=== PATIENT | male | born 1940 | race Caucasian/White ===

== ENCOUNTER 2016-11-02 19:45 | Inpatient (IN) | payer MEDICARE ==
[~2016-11-02] VITALS: Ht 182.9 cm; Wt 63.5 kg
[~2016-11-02 19:45] MED LIST: AMIO200T2 PEG; AMOX1TAB10 PO; AMPH50VI IV; ASCO500C PEG; CEFT2FRO2 IV; FERR-26 PO; METO25TA4 PO; METR500T IV; OLAN5TAB7 PO; ONDA4SOL2 PO; PANT40TA3 PEG; SERT25TA4 PEG
[2016-11-02] MEDS ORDERED: IV NORMAL SALINE 1000ML BAG 1,000 ML IV ONE ×2 (20:00→21:30)
[2016-11-02 20:43] LABS: BASO # 0.1 x10^3/uL (0.0-0.2); BASO % 0 % (0-3); EOS % 0 % (0-3); HEMOGLOBIN 8.6 g/dL (13.0-17.5); LYMPH # 4.6 x10^3/uL (1.0-4.8); LYMPH % 32 % (24-48); MEAN CORPUSCULAR HEMOGLOBIN 28 pg (25-35); MEAN CORPUSCULAR HGB CONC 32 g/dL (31-37); MEAN CORPUSCULAR VOLUME 88 fL (79-100); MONO % 10 % (0-9); NEUT % 57 % (31-73); PLATELET COUNT 292 x10^3/uL (140-400); RED BLOOD COUNT 3.05 x10^6/uL (4.30-5.70); WHITE BLOOD COUNT 14.2 x10^3/uL (4.0-11.0)
[2016-11-02 20:52] LABS: INR 1.8 (0.8-1.1); PROTHROMBIN TIME PATIENT 19.9 SEC (11.7-14.0)
[2016-11-02 20:54] LABS: CALCIUM 7.6 mg/dL (8.5-10.1); CREATININE 0.9 mg/dL (0.7-1.3); GFR 82.3
--- NOTE | 2016-11-02 21:03 | PHYS DOC ---
Past Medical History Past Medical History: A-Fib, Bipolar, Depression, GERD, Hypertension, Schizophrenia Past Surgical History: Other Additional Past Surgical Histo: cutaneous abscess of the abd wall, g-tube Alcohol Use: None Drug Use: None Adult General Chief Complaint Chief Complaint: HYPOTENSION HPI HPI 75-year-old male who states he had an issue with his wheelchair today in which he states his brake was not on and while he tried to sit down in the wheelchair and slipped out from underneath him and he impacted his right shoulder, right elbow and right hip. This was earlier this morning. He states that the days become weaker. Blood pressure was checked at his [facility] and was found to be low so he was sent here for further evaluation. He denies hitting his head or having any loss of consciousness. Patient states he does not take blood thinners. He denies any chest pain or shortness breath. Upon my initial evaluation, the patient is in no acute distress complaining of primarily right hip pain. He denies any headache. He is fully alert and oriented and able to answer my questions rate patient is in a LTAC for tube feeds as he had a significant abdominal abscess that required drainage and subsequent placement of tube feeds after the procedure. 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 Review of Systems Review of Systems Constitutional: Denies fever or chills [] Eyes: Denies change in visual acuity, redness, or eye pain [] HENT: Denies nasal congestion or sore throat [] Respiratory: Denies cough or shortness of breath [] Cardiovascular: No additional information not addressed in HPI [] GI: Denies abdominal pain, nausea, vomiting, bloody stools or diarrhea [] : Denies dysuria or hematuria [] Musculoskeletal: Denies back pain or joint pain [] Integument: Denies rash or skin lesions [] Neurologic: Denies headache, focal weakness or sensory changes [] Endocrine: Denies polyuria or polydipsia [] Current Medications Current Medications Current Medications Medications (Trade) Dose Ordered Sig/Harvey Start Time Stop Time Status Last Admin Dose Admin Ondansetron HCl 4 mg 4 mg PRN Q8HRS PRN 11/02/16 21:30 11/03/16 21:29 Sodium Chloride (Iv Sodium Chloride 0.9% 1000ml Bag) 1,000 ml @ 1,000 mls/hr 1X ONCE 11/02/16 21:30 11/02/16 22:29 Allergies Allergies Allergies Coded Allergies Type Severity Reaction Last Updated Verified Sulfa (Sulfonamide Antibiotics) Allergy Intermediate 09/22/16 Yes Physical Exam Physical Exam Constitutional: Well developed, well nourished, no acute distress, non-toxic appearance. [] HENT: Normocephalic, atraumatic, bilateral external ears normal, oropharynx moist, no oral exudates, nose normal. [] Eyes: PERRLA, EOMI, conjunctiva normal, no discharge. [] Neck: Normal range of motion, no tenderness, supple, no stridor. [] Cardiovascular:Heart rate regular rhythm, no murmur [] Lungs & Thorax: Bilateral breath sounds clear to auscultation [] Abdomen: Bowel sounds normal, soft, no tenderness, no masses, no pulsatile masses. [] Skin: Warm, dry, no erythema, no rash. [] Back: No tenderness, no CVA tenderness. [] Extremities: No tenderness, no cyanosis, no clubbing, ROM intact, no edema. [] Neurologic: Alert and oriented X 3, normal motor function, normal sensory function, no focal deficits noted. [] Psychologic: Affect normal, judgement normal, mood normal. [] Current Patient Data Vital Signs Vital Signs Date Time Temp Pulse Resp B/P Pulse Ox O2 Delivery O2 Flow Rate FiO2 11/02/16 21:00 74 103/52 95 Room Air 11/02/16 19:51 98.4 16 98.4 Lab Values Laboratory Tests Test 11/02/16 20:35 White Blood Count 14.2x10^3/uL (4.0-11.0) H Red Blood Count 3.05x10^6/uL (4.30-5.70) L Hemoglobin 8.6g/dL (13.0-17.5) L Hematocrit 27.0% (39.0-53.0) L Mean Corpuscular Volume 88fL (79-100) Mean Corpuscular Hemoglobin 28pg (25-35) Mean Corpuscular Hemoglobin Concent 32g/dL (31-37) Red Cell Distribution Width 18.0% (11.5-14.5) H Platelet Count 292x10^3/uL (140-400) Neutrophils (%) (Auto) 57% (31-73) Lymphocytes (%) (Auto) 32% (24-48) Monocytes (%) (Auto) 10% (0-9) H Eosinophils (%) (Auto) 0% (0-3) Basophils (%) (Auto) 0% (0-3) Neutrophils # (Auto) 8.1x10^3uL (1.8-7.7) H Lymphocytes # (Auto) 4.6x10^3/uL (1.0-4.8) Monocytes # (Auto) 1.4x10^3/uL (0.0-1.1) H Eosinophils # (Auto) 0.0x10^3/uL (0.0-0.7) Basophils # (Auto) 0.1x10^3/uL (0.0-0.2) Prothrombin Time 19.9SEC (11.7-14.0) H Prothrombin Time INR 1.8 (0.8-1.1) H Sodium Level 135mmol/L (136-145) L Potassium Level 4.0mmol/L (3.5-5.1) Chloride Level 101mmol/L (98-107) Carbon Dioxide Level 27mmol/L (21-32) Anion Gap 7 (6-14) Blood Urea Nitrogen 18mg/dL (8-26) Creatinine 0.9mg/dL (0.7-1.3) Estimated GFR (Cockcroft-Gault) 82.3 Glucose Level 69mg/dL (70-99) L Calcium Level 7.6mg/dL (8.5-10.1) L Troponin I Quantitative < 0.017ng/mL (0.000-0.055) Laboratory Tests 11/02/16 20:35 Laboratory Tests 11/02/16 20:35 EKG EKG EKG as interpreted by me shows a sinus rhythm with a rate of 71 bpm. QTc intervals prolonged at 530 ms. There are no acute ST segment abnormalities. There are no obvious signs of ischemia on this EKG. Radiology/Procedures Radiology/Procedures One view of his chest as interpreted by me did not reveal an acute cardiopulmonary process. 2 view of the right hip reveal an obvious fracture but does show some significant arthritic change. Examination: CT head and cervical spine without contrast HISTORY History of fall COMPARISON None available. TECHNIQUE Axial CT images of the head without contrast. Axial CT images of the cervical spine was performed without contrast. Coronal and sagittal reformats were performed. Exposure: One or more of the following dose reduction technique were utilized for this examination: 1. Automated exposure control. 2.Adjustment of MA and /or KV according to patient size. 3. Use of iterative reconstruction technique. Findings : There is no evidence of midline shift. Moderate bilateral periventricular white matter hypodensities likely chronic small vessel ischemic disease. Visualized lateral ventricles, 3rd ventricle, 4th ventricle appropriate for age. The basal cisterns are not effaced. The vertebral body heights are maintained. The lateral masses of C1 are aligned with C2 vertebra. The C2 dens appears intact. No prevertebral soft tissue swelling identified. There is moderate to severe intervertebral disc height loss identified at C5-C6, vertebral levels. Moderate intervertebral disc height less identified throughout the other cervical vertebral levels. The bilateral facets are well aligned. IMPRESSION - No acute intracranial findings. - No acute fracture of the cervical spine. Correlate clinically - Moderate degenerative changes cervical spine. Electronically signed by: Michoacano Rocha (Nov 02, 2016 21:47:45) Course & Med Decision Making Course & Med Decision Making Pertinent Labs and Imaging studies reviewed. (See chart for details) This 75-year-old male who's dependent on tube feeds will be admitted for his ongoing dehydration and hypotension. Patient is received an IV fluid bolus and his blood pressure has improved modestly to the 102/50 range. Patient does believe he is significantly dehydrated and weak. He cannot be relied upon to orally hydrate at home as he has a soft field dysmotility issues and for this reason I'll bring him in for continued IV rehydration therapy. His laboratory workup is fairly unremarkable. His hemoglobin is 8.6 which is an improvement from a month and a half ago. I will discuss the need to admit the patient to the hospitalist, Dr. Espana, in light of his continued IV fluid needs. CT of his head and neck were negative for any acute abnormality. He was admitted with continued IV fluid rehydration therapy. Dragon Disclaimer Dragon Disclaimer This electronic medical record was generated, in whole or in part, using a voice recognition dictation system. Departure Departure Impression: Primary Impression: Dehydration Additional Impression: Fall Disposition: ADMITTED INPATIENT Admitting Physician: Jordi Espana Condition: STABLE Referrals: UNKNOWN PCP NAME (PCP) Problem Qualifiers MARK VALLE DO Nov 02, 2016 21:03
[2016-11-02] MEDS ORDERED: IV NORMAL SALINE 1000ML BAG 1,000 ML IV SCH (21:17)
[2016-11-02] MEDS ORDERED: ONDANSETRON PF 4 MG/2 ML VIAL. IV PRN (21:30)
--- NOTE | 2016-11-02 21:48 | RAD ---
Examination: CT head and cervical spine without contrast HISTORY History of fall COMPARISON None available. TECHNIQUE Axial CT images of the head without contrast. Axial CT images of the cervical spine was performed without contrast. Coronal and sagittal reformats were performed. Exposure: One or more of the following dose reduction technique were utilized for this examination: 1. Automated exposure control. 2.Adjustment of MA and /or KV according to patient size. 3. Use of iterative reconstruction technique. Findings : There is no evidence of midline shift. Moderate bilateral periventricular white matter hypodensities likely chronic small vessel ischemic disease. Visualized lateral ventricles, 3rd ventricle, 4th ventricle appropriate for age. The basal cisterns are not effaced. The vertebral body heights are maintained. The lateral masses of C1 are aligned with C2 vertebra. The C2 dens appears intact. No prevertebral soft tissue swelling identified. There is moderate to severe intervertebral disc height loss identified at C5-C6, vertebral levels. Moderate intervertebral disc height less identified throughout the other cervical vertebral levels. The bilateral facets are well aligned. IMPRESSION - No acute intracranial findings. - No acute fracture of the cervical spine. Correlate clinically - Moderate degenerative changes cervical spine. Electronically signed by: Michoacano Rocha (Nov 02, 2016 21:47:45)
--- NOTE | 2016-11-02 21:55 | ACF ---
Admission Forms Criteria DEHYDRATION Clinical Indications for Admission to Inpatient Care (Place 'X' for any and all applicable criteria): Admission is indicated for ANY ONE of the following (1)(2)(3)(4)(5): [X]I. Inpatient admission required rather than observation care (see Dehydration: Observation Care guideline as appropriate) because of ANY ONE of the following: [ ]a) Vomiting that is severe or persistent [ ]b) Severe electrolyte abnormalities requiring inpatient care [X]c) Hemodynamic instability [ ]d) IV fluid to replace significant ongoing losses (greater than 3 L/m2 per day (10) (11) [ ]e) Parenteral nutrition regimen that must be implemented on inpatient basis [ ]f) Other condition,treatment or monitoring requiring inpatient admission [ ]II. Serious cause for dehydration requiring acute hospitalization (eg, bowel obstruction, increased intracranial pressure, infectious cause) Extended stay beyond goal length of stay may be needed for(1)(3 )(4)(17): [ ]a) Chronic severe dehydration [ ]b) Persistent vital sign changes, severe electrolyte imbalance, or diagnosed cause of dehydration that requires continued hospitalization (eg, bowel obstruction, increased intracranial pressure) [ ]c) Older patients (65 years or older) [ ]d) Severe comorbid illness (eg, renal failure, heart failure, poorly controlled diabetes) The original [email or web address] content created by [email or web address] has been revised. The portions of the content which have been revised are identified through the use of italic text or in bold, and [facility] has neither reviewed nor approved the modified material. All other unmodified content is copyright [email or web address]. Please see references footnoted in the original [email or web address] edition 2016 Admission Criteria Met?: Yes GAL MOLINA Nov 02, 2016 21:55
--- NOTE | 2016-11-03 00:44 | HP ---
ADMIT DATE: 11/03/2016 CHIEF COMPLAINT: Weakness, fall from a wheelchair. HISTORY OF PRESENT ILLNESS: The patient is a pleasant 75-year-old male who is in a wheelchair, apparently did not when he fell out of the chair. He is dizzy. He is weak. While in the ER, he is hypotensive, appears to be dehydrated. I have discussed the case with the ER physician. We are going to admit the patient. PAST MEDICAL HISTORY: Wheelchair-bound, AFib, bipolar, depression, GERD, hypertension, schizophrenia, abdominal wall abscess and G-tube. ALLERGIES: SULFA. FAMILY HISTORY: Diabetes. SOCIAL HISTORY: Lives in a facility, does not drink, smoke or take drugs. MEDICATIONS: Reviewed, please refer to the MRAD. REVIEW OF SYSTEMS: GENERAL: No history of weight change, or fevers. He complains of weakness. SKIN: No bruising, hair changes or rashes. EYES: No blurred, double or loss of vision. NOSE AND THROAT: No history of nosebleeds, hoarseness or sore throat. HEART: No history of palpitations, chest pain or shortness of breath on exertion. LUNGS: Denies cough, hemoptysis, wheezing or shortness of breath. GASTROINTESTINAL: Denies changes in appetite, nausea, vomiting, diarrhea or constipation. GENITOURINARY: No history of frequency, urgency, hesitancy or nocturia. NEUROLOGIC: Denies history of numbness, tingling, tremor or weakness. PSYCHIATRIC: No history of panic, anxiety or depression. ENDOCRINE: No history of heat or cold intolerance, polyuria or polydipsia. EXTREMITIES: Denies muscle weakness, joint pain, pain on walking or stiffness. PHYSICAL EXAMINATION: VITAL SIGNS: Temperature afebrile, pulse 90, respirations 20, blood pressure 103/53, it was as low as 93/51 earlier. HEART: Distant S1, S2. LUNGS: Clear. ABDOMEN: Soft, there is a PEG. EXTREMITIES: No edema. SKIN: No rashes. ENDOCRINE: No thyromegaly. LYMPHATICS: No cervical nodes. LABORATORY DATA: White count 14, hemoglobin 8.6, platelets 292. Electrolytes: Sodium 135, potassium 4.0, chloride 101, bicarbonate 27, BUN 18, creatinine 0.9, glucose 69. ASSESSMENT AND PLAN: Clinical dehydration, leukocytosis, anemia, and weakness. The patient is being admitted. We will consult Physical Therapy, Occupational Therapy, IV fluids, empiric IV antibiotics. Continue home medicines. PROGNOSIS: Guarded. ANGIE SAWANT DO DR: ENEDELIA/afia JOB#: [id number] / [id number]
[2016-11-03] MEDS ORDERED: MAG360OR24 PEG (01:32)
[2016-11-03] MEDS ORDERED: FERR-26 PEG (01:32)
[2016-11-03] MEDS ORDERED: ACET325S PEG (01:32)
[2016-11-03] MEDS ORDERED: IPRA3AMP NEB (01:32)
[2016-11-03] MEDS ORDERED: WARF2TAB PEG (01:32)
[2016-11-03] MEDS ORDERED: NEOM1PAC TP (01:32)
[2016-11-03] MEDS ORDERED: CHOL4POW PEG (01:32)
[2016-11-03 02:11] LABS: BILIRUBIN,URINE NEGATIVE (NEG); GLUCOSE,URINE NEGATIVE (NEG); NITRITE,URINE NEGATIVE (NEG); PROTEIN,URINE 30 mg/dL (NEG-TRACE); UROBILINOGEN,URINE 0.2 mg/dL (0.2 mg/dL)
[2016-11-03 02:17] LABS: BACTERIA,URINE MANY /HPF (0-FEW); SQUAMOUS EPITHELIAL CELL,UR FEW /LPF
[2016-11-03 02:18] LABS: BARBITURATES NEG (NEG); BENZODIAZEPINES NEG (NEG); CANNABINOIDS NEG (NEG); COCAINE NEG (NEG); METHADONE NEG (NEG); OPIATES NEG (NEG); PHENCYCLIDINE NEG (NEG)
[2016-11-03 05:11] LABS: BASO # 0.1 x10^3/uL (0.0-0.2); BASO % 1 % (0-3); EOS % 0 % (0-3); HEMATOCRIT 23.1 % (39.0-53.0); HEMOGLOBIN 7.3 g/dL (13.0-17.5); LYMPH # 4.2 x10^3/uL (1.0-4.8); LYMPH % 37 % (24-48); MEAN CORPUSCULAR HEMOGLOBIN 28 pg (25-35); MEAN CORPUSCULAR HGB CONC 32 g/dL (31-37); MEAN CORPUSCULAR VOLUME 89 fL (79-100); MONO % 13 % (0-9); NEUT % 50 % (31-73); PLATELET COUNT 287 x10^3/uL (140-400); RED CELL DISTRIBUTION WIDTH 18.4 % (11.5-14.5); WHITE BLOOD COUNT 11.5 x10^3/uL (4.0-11.0)
[2016-11-03 05:36] LABS: CALCIUM 7.4 mg/dL (8.5-10.1); CREATININE 0.8 mg/dL (0.7-1.3); GFR 94.2; POTASSIUM 3.5 mmol/L (3.5-5.1)
--- NOTE | 2016-11-03 06:51 | EKG ---
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
[2016-11-03 07:00] VITALS: BP 90/53
--- NOTE | 2016-11-03 09:00 | RAD ---
Pelvis with right hip, 11/02/2016: History: Hip pain No fracture or dislocation is identified. There is severe narrowing of the right hip joint with subchondral sclerosis and subchondral cyst formation along both sides of the joint. There is mild marginal spurring. The left hip joint is well preserved. There is mild degenerative change at the symphysis pubis. Scattered arterial calcifications are present. IMPRESSION: 1. 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 2. No acute bony abnormality is detected.
--- NOTE | 2016-11-03 09:03 | RAD ---
Portable chest, 11/02/2016: History: Chest pain No previous chest radiographs are available at this time for comparison purposes. A left-sided transvenous pacemaker is in place with 2 leads extending into the right heart. There is a pigtail drain projected over the right upper quadrant of the abdomen, apparently draining a known perihepatic fluid collection. There is calcific plaquing of the aorta. The heart size and pulmonary vascularity are normal. No pulmonary infiltrates are seen. A mild focal bulge is noted along the dome of the left hemidiaphragm. There is no evidence of pleural fluid. There are mild scattered degenerative changes in the spine. IMPRESSION: No acute cardiopulmonary abnormality is detected.
[2016-11-03 11:00] VITALS: BP 96/52
[2016-11-03] MEDS: IV NORMAL SALINE 1000ML BAG 1,000 ML IV SCH (12:30)
--- NOTE | 2016-11-03 12:40 | PDOC ---
PROGRESS NOTES Chief Complaint Chief Complaint cc: dizziness A/P Dizziness: suspected due to hypotension,: on iv hydration with normal saline, possible Pacer interrogating, consult cardiology for further invistation of dizziness. home medications reviwed, and reconciled. hx of Afib, rate controlled, on warfarin, INR goal 2-3, pharmacy to dose Coumadin. Dysphagia with due to esophageal issues, unclear : on PEG, initiate tube feeding Recent HX of abdominal abscess: on ASAD drain, consult surgery for opinion drain has been there for 3 months. Bipolar Leucocytosis likely due to dehydration, History of Present Illness History of Present Illness dizziness no fever no chills Vitals Vitals Vital Signs Date Time Temp Pulse Resp B/P Pulse Ox O2 Delivery O2 Flow Rate FiO2 11/03/16 11:00 98.8 81 16 96/52 97 Room Air 98.8 Physical Exam General: Alert, Oriented X3 Heart: Regular rate, Normal S1, Normal S2 Lungs: Clear, Wheezing Abdomen: Soft, Other (PEG present) Labs LABS Laboratory Tests Test 11/02/16 20:35 11/02/16 21:40 11/03/16 02:00 11/03/16 03:40 White Blood Count 14.2x10^3/uL (4.0-11.0) 11.5x10^3/uL (4.0-11.0) Red Blood Count 3.05x10^6/uL (4.30-5.70) 2.60x10^6/uL (4.30-5.70) Hemoglobin 8.6g/dL (13.0-17.5) 7.3g/dL (13.0-17.5) Hematocrit 27.0% (39.0-53.0) 23.1% (39.0-53.0) Mean Corpuscular Volume 88fL (79-100) 89fL (79-100) Mean Corpuscular Hemoglobin 28pg (25-35) 28pg (25-35) Mean Corpuscular Hemoglobin Concent 32g/dL (31-37) 32g/dL (31-37) Red Cell Distribution Width 18.0% (11.5-14.5) 18.4% (11.5-14.5) Platelet Count 292x10^3/uL (140-400) 287x10^3/uL (140-400) Neutrophils (%) (Auto) 57% (31-73) 50% (31-73) Lymphocytes (%) (Auto) 32% (24-48) 37% (24-48) Monocytes (%) (Auto) 10% (0-9) 13% (0-9) Eosinophils (%) (Auto) 0% (0-3) 0% (0-3) Basophils (%) (Auto) 0% (0-3) 1% (0-3) Neutrophils # (Auto) 8.1x10^3uL (1.8-7.7) 5.8x10^3uL (1.8-7.7) Lymphocytes # (Auto) 4.6x10^3/uL (1.0-4.8) 4.2x10^3/uL (1.0-4.8) Monocytes # (Auto) 1.4x10^3/uL (0.0-1.1) 1.5x10^3/uL (0.0-1.1) Eosinophils # (Auto) 0.0x10^3/uL (0.0-0.7) 0.0x10^3/uL (0.0-0.7) Basophils # (Auto) 0.1x10^3/uL (0.0-0.2) 0.1x10^3/uL (0.0-0.2) Prothrombin Time 19.9SEC (11.7-14.0) Prothromb Time International Ratio 1.8 (0.8-1.1) Sodium Level 135mmol/L (136-145) 136mmol/L (136-145) Potassium Level 4.0mmol/L (3.5-5.1) 3.5mmol/L (3.5-5.1) Chloride Level 101mmol/L (98-107) 104mmol/L (98-107) Carbon Dioxide Level 27mmol/L (21-32) 25mmol/L (21-32) Anion Gap 7 (6-14) 7 (6-14) Blood Urea Nitrogen 18mg/dL (8-26) 17mg/dL (8-26) Creatinine 0.9mg/dL (0.7-1.3) 0.8mg/dL (0.7-1.3) Estimated GFR (Cockcroft-Gault) 82.3 94.2 Glucose Level 69mg/dL (70-99) 68mg/dL (70-99) Calcium Level 7.6mg/dL (8.5-10.1) 7.4mg/dL (8.5-10.1) Troponin I Quantitative < 0.017ng/mL (0.000-0.055) Lactic Acid Level 1.2mmol/L (0.4-2.0) Urine Collection Type Unknown Urine Color Yellow Urine Clarity Clear Urine pH 7.0 Urine Specific [place] 1.015 Urine Protein 30mg/dL (NEG-TRACE) Urine Glucose (UA) Negativemg/dL (NEG) Urine Ketones (Stick) Negativemg/dL (NEG) Urine Blood Negative (NEG) Urine Nitrite Negative (NEG) Urine Bilirubin Negative (NEG) Urine Urobilinogen Dipstick 0.2mg/dL (0.2 mg/dL) Urine Leukocyte Esterase Small (NEG) Urine RBC 6-10/HPF (0-2) Urine WBC 11-20/HPF (0-4) Urine Squamous Epithelial Cells Few/LPF Urine Bacteria Many/HPF (0-FEW) Urine Hyaline Casts Moderate/HPF Urine Mucus Mod/LPF Urine Opiates Screen Neg (NEG) Urine Methadone Screen Neg (NEG) Urine Barbiturates Neg (NEG) Urine Phencyclidine Screen Neg (NEG) Urine Amphetamine/Methamphetamine Neg (NEG) Urine Benzodiazepines Screen Neg (NEG) Urine Cocaine Screen Neg (NEG) Urine Cannabinoids Screen Neg (NEG) Urine Ethyl Alcohol Neg (NEG) Assessment and Plan Assessmemt and Plan Problems Medical Problems: (1) Dehydration Status: Acute (2) Fall Status: Acute Problems: Comment Review of Relevant I have reviewed the following items bigg (where applicable) has been applied. Labs Laboratory Tests Test 11/02/16 20:35 11/02/16 21:40 11/03/16 02:00 11/03/16 03:40 White Blood Count 14.2x10^3/uL (4.0-11.0) 11.5x10^3/uL (4.0-11.0) Red Blood Count 3.05x10^6/uL (4.30-5.70) 2.60x10^6/uL (4.30-5.70) Hemoglobin 8.6g/dL (13.0-17.5) 7.3g/dL (13.0-17.5) Hematocrit 27.0% (39.0-53.0) 23.1% (39.0-53.0) Mean Corpuscular Volume 88fL (79-100) 89fL (79-100) Mean Corpuscular Hemoglobin 28pg (25-35) 28pg (25-35) Mean Corpuscular Hemoglobin Concent 32g/dL (31-37) 32g/dL (31-37) Red Cell Distribution Width 18.0% (11.5-14.5) 18.4% (11.5-14.5) Platelet Count 292x10^3/uL (140-400) 287x10^3/uL (140-400) Neutrophils (%) (Auto) 57% (31-73) 50% (31-73) Lymphocytes (%) (Auto) 32% (24-48) 37% (24-48) Monocytes (%) (Auto) 10% (0-9) 13% (0-9) Eosinophils (%) (Auto) 0% (0-3) 0% (0-3) Basophils (%) (Auto) 0% (0-3) 1% (0-3) Neutrophils # (Auto) 8.1x10^3uL (1.8-7.7) 5.8x10^3uL (1.8-7.7) Lymphocytes # (Auto) 4.6x10^3/uL (1.0-4.8) 4.2x10^3/uL (1.0-4.8) Monocytes # (Auto) 1.4x10^3/uL (0.0-1.1) 1.5x10^3/uL (0.0-1.1) Eosinophils # (Auto) 0.0x10^3/uL (0.0-0.7) 0.0x10^3/uL (0.0-0.7) Basophils # (Auto) 0.1x10^3/uL (0.0-0.2) 0.1x10^3/uL (0.0-0.2) Prothrombin Time 19.9SEC (11.7-14.0) Prothromb Time International Ratio 1.8 (0.8-1.1) Sodium Level 135mmol/L (136-145) 136mmol/L (136-145) Potassium Level 4.0mmol/L (3.5-5.1) 3.5mmol/L (3.5-5.1) Chloride Level 101mmol/L (98-107) 104mmol/L (98-107) Carbon Dioxide Level 27mmol/L (21-32) 25mmol/L (21-32) Anion Gap 7 (6-14) 7 (6-14) Blood Urea Nitrogen 18mg/dL (8-26) 17mg/dL (8-26) Creatinine 0.9mg/dL (0.7-1.3) 0.8mg/dL (0.7-1.3) Estimated GFR (Cockcroft-Gault) 82.3 94.2 Glucose Level 69mg/dL (70-99) 68mg/dL (70-99) Calcium Level 7.6mg/dL (8.5-10.1) 7.4mg/dL (8.5-10.1) Troponin I Quantitative < 0.017ng/mL (0.000-0.055) Lactic Acid Level 1.2mmol/L (0.4-2.0) Urine Collection Type Unknown Urine Color Yellow Urine Clarity Clear Urine pH 7.0 Urine Specific [place] 1.015 Urine Protein 30mg/dL (NEG-TRACE) Urine Glucose (UA) Negativemg/dL (NEG) Urine Ketones (Stick) Negativemg/dL (NEG) Urine Blood Negative (NEG) Urine Nitrite Negative (NEG) Urine Bilirubin Negative (NEG) Urine Urobilinogen Dipstick 0.2mg/dL (0.2 mg/dL) Urine Leukocyte Esterase Small (NEG) Urine RBC 6-10/HPF (0-2) Urine WBC 11-20/HPF (0-4) Urine Squamous Epithelial Cells Few/LPF Urine Bacteria Many/HPF (0-FEW) Urine Hyaline Casts Moderate/HPF Urine Mucus Mod/LPF Urine Opiates Screen Neg (NEG) Urine Methadone Screen Neg (NEG) Urine Barbiturates Neg (NEG) Urine Phencyclidine Screen Neg (NEG) Urine Amphetamine/Methamphetamine Neg (NEG) Urine Benzodiazepines Screen Neg (NEG) Urine Cocaine Screen Neg (NEG) Urine Cannabinoids Screen Neg (NEG) Urine Ethyl Alcohol Neg (NEG) Laboratory Tests Test 11/02/16 20:35 11/02/16 21:40 11/03/16 02:00 11/03/16 03:40 White Blood Count 14.2x10^3/uL (4.0-11.0) 11.5x10^3/uL (4.0-11.0) Red Blood Count 3.05x10^6/uL (4.30-5.70) 2.60x10^6/uL (4.30-5.70) Hemoglobin 8.6g/dL (13.0-17.5) 7.3g/dL (13.0-17.5) Hematocrit 27.0% (39.0-53.0) 23.1% (39.0-53.0) Mean Corpuscular Volume 88fL (79-100) 89fL (79-100) Mean Corpuscular Hemoglobin 28pg (25-35) 28pg (25-35) Mean Corpuscular Hemoglobin Concent 32g/dL (31-37) 32g/dL (31-37) Red Cell Distribution Width 18.0% (11.5-14.5) 18.4% (11.5-14.5) Platelet Count 292x10^3/uL (140-400) 287x10^3/uL (140-400) Neutrophils (%) (Auto) 57% (31-73) 50% (31-73) Lymphocytes (%) (Auto) 32% (24-48) 37% (24-48) Monocytes (%) (Auto) 10% (0-9) 13% (0-9) Eosinophils (%) (Auto) 0% (0-3) 0% (0-3) Basophils (%) (Auto) 0% (0-3) 1% (0-3) Neutrophils # (Auto) 8.1x10^3uL (1.8-7.7) 5.8x10^3uL (1.8-7.7) Lymphocytes # (Auto) 4.6x10^3/uL (1.0-4.8) 4.2x10^3/uL (1.0-4.8) Monocytes # (Auto) 1.4x10^3/uL (0.0-1.1) 1.5x10^3/uL (0.0-1.1) Eosinophils # (Auto) 0.0x10^3/uL (0.0-0.7) 0.0x10^3/uL (0.0-0.7) Basophils # (Auto) 0.1x10^3/uL (0.0-0.2) 0.1x10^3/uL (0.0-0.2) Prothrombin Time 19.9SEC (11.7-14.0) Prothromb Time International Ratio 1.8 (0.8-1.1) Sodium Level 135mmol/L (136-145) 136mmol/L (136-145) Potassium Level 4.0mmol/L (3.5-5.1) 3.5mmol/L (3.5-5.1) Chloride Level 101mmol/L (98-107) 104mmol/L (98-107) Carbon Dioxide Level 27mmol/L (21-32) 25mmol/L (21-32) Anion Gap 7 (6-14) 7 (6-14) Blood Urea Nitrogen 18mg/dL (8-26) 17mg/dL (8-26) Creatinine 0.9mg/dL (0.7-1.3) 0.8mg/dL (0.7-1.3) Estimated GFR (Cockcroft-Gault) 82.3 94.2 Glucose Level 69mg/dL (70-99) 68mg/dL (70-99) Calcium Level 7.6mg/dL (8.5-10.1) 7.4mg/dL (8.5-10.1) Troponin I Quantitative < 0.017ng/mL (0.000-0.055) Lactic Acid Level 1.2mmol/L (0.4-2.0) Urine Collection Type Unknown Urine Color Yellow Urine Clarity Clear Urine pH 7.0 Urine Specific [place] 1.015 Urine Protein 30mg/dL (NEG-TRACE) Urine Glucose (UA) Negativemg/dL (NEG) Urine Ketones (Stick) Negativemg/dL (NEG) Urine Blood Negative (NEG) Urine Nitrite Negative (NEG) Urine Bilirubin Negative (NEG) Urine Urobilinogen Dipstick 0.2mg/dL (0.2 mg/dL) Urine Leukocyte Esterase Small (NEG) Urine RBC 6-10/HPF (0-2) Urine WBC 11-20/HPF (0-4) Urine Squamous Epithelial Cells Few/LPF Urine Bacteria Many/HPF (0-FEW) Urine Hyaline Casts Moderate/HPF Urine Mucus Mod/LPF Urine Opiates Screen Neg (NEG) Urine Methadone Screen Neg (NEG) Urine Barbiturates Neg (NEG) Urine Phencyclidine Screen Neg (NEG) Urine Amphetamine/Methamphetamine Neg (NEG) Urine Benzodiazepines Screen Neg (NEG) Urine Cocaine Screen Neg (NEG) Urine Cannabinoids Screen Neg (NEG) Urine Ethyl Alcohol Neg (NEG) Medications Current Medications Sodium Chloride (Iv Sodium Chloride 0.9% 1000ml Bag) 1,000 ml @ 1,000 mls/hr 1X ONCE IV Last administered on 11/02/16 20:00; Start 11/02/16 at 20:00; Stop 11/02/16 at 20:59; Status DC Ondansetron HCl 4 mg 4 mg PRN Q8HRS PRN IV NAUSEA/VOMITING; Start 11/02/16 at 21:30; Stop 11/03/16 at 21:29 Sodium Chloride 1,000 ml @ 150 mls/hr Q6H40M IV Last administered on 05:38; Start 11/02/16 at 21:17; Stop 11/03/16 at 21:16 Sodium Chloride 1,000 ml @ 1,000 mls/hr 1X ONCE IV Last administered on 21:30; Start 11/02/16 at 21:30; Stop 11/02/16 at 22:29; Status DC Ceftriaxone Sodium/Sodium Chloride (Rocephin/Iv Sodium Chloride 0.9% 50ml) 50 ml @ 100 mls/hr Q24H IV Last administered on 11/03/16 02:02; Start 11/02/16 at 23:30 Active Scripts Active Reported Triple Antibiotic Ointment (Neomy Sulf/Bacitra/Polymyxin B) 1 Each Packet 1 Each TP DAILY Duoneb 0.5-3(2.5) Mg/3 Ml (Albuterol/Ipratropium) 3 Ml Ampul.neb 3 Ml NEB PRN Q4HRS PRN Ferrous Sulfate 325 Mg Tablet 1 Tab PEG BID Cholestyramine Light Packet (Cholestyramine/Aspartame) 4 Gm Powd.pack 4 Gm PEG TID Coumadin (Warfarin Sodium) 2 Mg Tablet 1 Tab PEG DAILY Acetaminophen 325 Mg/10.15 Ml Solution 325 Mg PEG PRN Q4HRS PRN Alum-Mag Hydroxide-Simeth Liq (Mag Hydrox/Al Hydrox/Simeth) 360 Ml Oral.susp 30 Ml PEG PRN Q2HRS PRN Vitamin C (Ascorbic Acid) 500 Mg Capsule.er 1,000 Mg PEG BID Sertraline Hcl 25 Mg Tablet 25 Mg PEG DAILY Protonix (Pantoprazole Sodium) 40 Mg Tablet. 1 Tab PEG BID Amiodarone Hcl 200 Mg Tablet 1 Tab PEG BID Vitals/I & O Vital Sign - Last 24 Hours 11/02/16 11/02/16 11/02/16 11/02/16 19:51 20:15 20:30 21:00 Temp 98.4 98.4 Pulse 71 67 75 74 Resp 16 B/P 93/55 99/55 93/51 103/52 Pulse Ox 97 97 95 O2 Delivery Room Air Room Air Room Air Room Air 11/02/16 11/02/16 11/02/16 11/02/16 21:30 22:00 22:30 23:00 Pulse 78 77 78 B/P 91/54 104/58 106/59 Pulse Ox 96 96 O2 Delivery Room Air Room Air Room Air Room Air 11/03/16 11/03/16 11/03/16 07:00 08:00 11:00 Temp 98.2 98.8 98.2 98.8 Pulse 79 81 Resp 14 16 B/P 90/53 96/52 Pulse Ox 95 97 O2 Delivery Room Air Room Air Room Air Intake and Output 11/02/16 11/02/16 11/03/16 15:00 23:00 07:00 Intake Total 1000 ml Balance 1000 ml [place] MD Nov 03, 2016 12:40
[2016-11-03] MEDS ORDERED: MAG HYDROX/ALUMINUM HYD/SIMETH 30 ML ORAL.SUSP PEG PRN (12:45)
[2016-11-03] MEDS ORDERED: ALBUTEROL SULFATE 2.5 MG/3 ML NEBU. NEB PRN (12:45)
[2016-11-03] MEDS ORDERED: ACETAMINOPHEN 325 MG TABLET. PO PRN (12:45)
[2016-11-03] MEDS: CHOLESTYRAMINE/ASPARTAME 4 GM PACKET PEG SCH ×2 (14:00→21:31)
--- NOTE | 2016-11-03 14:31 | PDOC2 ---
CARDIAC CONSULT DATE OF CONSULT Date of Consult DATE: 11/03/16 TIME: 14:31 REASON FOR CONSULT Reason for Consult: Dizziness REFERRING PHYSICIAN Referring Physician: Dr. Pratt HISTORY OF PRESENT ILLNESS HISTORY OF PRESENT ILLNESS This is a 75 yo male who presented from rehab facility secondary to falling. Patient he was coming back inside from outdoors; apparently stood up out of his wheelchair to open the door and lost his balance, subsequently falling. Did have an episode of "lightheadedness" yesterday afternoon, but did not experience this with fall. Denies any chest pain, palpitations, diaphoresis, SOA , or nausea/vomiting. Is presently at rehab center in [place] following perforated duodenal ulcer repair at [facility] this past July. Was intially at [facility] post-discharge and eventually transferred to rehab facility. PAST MEDICAL HISTORY Cardiovascular: AFIB, HTN, Hyperlipidemia, Other (SSS s/p PPM) Pulmonary: Pneumonia GI: GERD, Other (perforated DU s/p repair, abdominal wall abscess with drain, achalasia ) Heme/Onc: Anemia NOS Hepatobiliary: No pertinent hx Psych: Anxiety, Bipolar, Depression, Schizophrenia Musculoskeletal: Osteoarthritis Rheumatologic: No pertinent hx Infectious disease: No pertinent hx ENT: No pertinent hx Renal/: Acute renal failure (requiring temp HD) Endocrine: No pertinent hx Dermatology: No pertinent hx PAST SURGICAL HISTORY Past Surgical History: Pacemaker (Medtronic ), Tonsillectomy, Other (DU repair , PEG placement, spleenectomy ) FAMILY HISTORY Family History: Other (noncontributory ) SOCIAL HISTORY Smoke: Quit (10 years ago) ALCOHOL: none Drugs: None [facility] CURRENT MEDICATIONS CURRENT MEDICATIONS Current Medications Medications (Trade) Dose Ordered Sig/Harvey Route PRN Reason Start Time Stop Time Status Last Admin Dose Admin Sodium Chloride 1,000 ml @ 1,000 mls/hr 1X ONCE IV 11/02/16 20:00 11/02/16 20:59 DC 11/02/16 20:00 Sodium Chloride 1,000 ml @ 150 mls/hr Q6H40M IV 11/02/16 21:17 11/03/16 12:26 DC 11/03/16 05:38 Sodium Chloride 1,000 ml @ 1,000 mls/hr 1X ONCE IV 11/02/16 21:30 11/02/16 22:29 DC 11/02/16 21:30 Ceftriaxone Sodium 1 gm/ Sodium Chloride 50 ml @ 100 mls/hr Q24H IV 11/02/16 23:30 11/03/16 02:02 Sodium Chloride (Iv Sodium Chloride 0.9% 1000ml Bag) 1,000 ml @ 75 mls/hr [id number] IV 11/03/16 12:30 11/03/16 12:30 ALLERGIES ALLERGIES: Coded Allergies: Sulfa (Sulfonamide Antibiotics) (Verified Allergy, Intermediate, 09/22/16) ROS Review of System 14 point ROS conducted with pertinent positives noted above in HPI PHYSICAL EXAM General: Alert, Oriented X3, Cooperative, No acute distress HEENT: Atraumatic, Mucous membr. moist/pink Lungs: Clear to auscultation, Normal air movement Heart: Regular rate, Normal S1, Normal S2, Other (not on telemetry, 2/6 systolic murmur ) Abdomen: Soft, Other (G-tube, RUQ abdominal drain) Extremities: Normal pulses, Other (1+ bilateral LE edema ) Neuro: Normal speech, Sensation intact Psych/Mental Status: Mental status NL, Other (anxious ) MUSCULOSKELETAL: Osteoarthritic changes both hands VITALS VITALS Vital Signs Date Time Temp Pulse Resp B/P Pulse Ox O2 Delivery O2 Flow Rate FiO2 11/03/16 11:00 98.8 81 16 96/52 97 Room Air 98.8 LABS Lab: Laboratory Tests Test 11/02/16 20:35 11/02/16 21:40 11/03/16 02:00 11/03/16 03:40 White Blood Count 14.2x10^3/uL (4.0-11.0) 11.5x10^3/uL (4.0-11.0) Red Blood Count 3.05x10^6/uL (4.30-5.70) 2.60x10^6/uL (4.30-5.70) Hemoglobin 8.6g/dL (13.0-17.5) 7.3g/dL (13.0-17.5) Hematocrit 27.0% (39.0-53.0) 23.1% (39.0-53.0) Mean Corpuscular Volume 88fL (79-100) 89fL (79-100) Mean Corpuscular Hemoglobin 28pg (25-35) 28pg (25-35) Mean Corpuscular Hemoglobin Concent 32g/dL (31-37) 32g/dL (31-37) Red Cell Distribution Width 18.0% (11.5-14.5) 18.4% (11.5-14.5) Platelet Count 292x10^3/uL (140-400) 287x10^3/uL (140-400) Neutrophils (%) (Auto) 57% (31-73) 50% (31-73) Lymphocytes (%) (Auto) 32% (24-48) 37% (24-48) Monocytes (%) (Auto) 10% (0-9) 13% (0-9) Eosinophils (%) (Auto) 0% (0-3) 0% (0-3) Basophils (%) (Auto) 0% (0-3) 1% (0-3) Neutrophils # (Auto) 8.1x10^3uL (1.8-7.7) 5.8x10^3uL (1.8-7.7) Lymphocytes # (Auto) 4.6x10^3/uL (1.0-4.8) 4.2x10^3/uL (1.0-4.8) Monocytes # (Auto) 1.4x10^3/uL (0.0-1.1) 1.5x10^3/uL (0.0-1.1) Eosinophils # (Auto) 0.0x10^3/uL (0.0-0.7) 0.0x10^3/uL (0.0-0.7) Basophils # (Auto) 0.1x10^3/uL (0.0-0.2) 0.1x10^3/uL (0.0-0.2) Prothrombin Time 19.9SEC (11.7-14.0) Prothromb Time International Ratio 1.8 (0.8-1.1) Sodium Level 135mmol/L (136-145) 136mmol/L (136-145) Potassium Level 4.0mmol/L (3.5-5.1) 3.5mmol/L (3.5-5.1) Chloride Level 101mmol/L (98-107) 104mmol/L (98-107) Carbon Dioxide Level 27mmol/L (21-32) 25mmol/L (21-32) Anion Gap 7 (6-14) 7 (6-14) Blood Urea Nitrogen 18mg/dL (8-26) 17mg/dL (8-26) Creatinine 0.9mg/dL (0.7-1.3) 0.8mg/dL (0.7-1.3) Estimated GFR (Cockcroft-Gault) 82.3 94.2 Glucose Level 69mg/dL (70-99) 68mg/dL (70-99) Calcium Level 7.6mg/dL (8.5-10.1) 7.4mg/dL (8.5-10.1) Troponin I Quantitative < 0.017ng/mL (0.000-0.055) Lactic Acid Level 1.2mmol/L (0.4-2.0) Urine Collection Type Unknown Urine Color Yellow Urine Clarity Clear Urine pH 7.0 Urine Specific [place] 1.015 Urine Protein 30mg/dL (NEG-TRACE) Urine Glucose (UA) Negativemg/dL (NEG) Urine Ketones (Stick) Negativemg/dL (NEG) Urine Blood Negative (NEG) Urine Nitrite Negative (NEG) Urine Bilirubin Negative (NEG) Urine Urobilinogen Dipstick 0.2mg/dL (0.2 mg/dL) Urine Leukocyte Esterase Small (NEG) Urine RBC 6-10/HPF (0-2) Urine WBC 11-20/HPF (0-4) Urine Squamous Epithelial Cells Few/LPF Urine Bacteria Many/HPF (0-FEW) Urine Hyaline Casts Moderate/HPF Urine Mucus Mod/LPF Urine Opiates Screen Neg (NEG) Urine Methadone Screen Neg (NEG) Urine Barbiturates Neg (NEG) Urine Phencyclidine Screen Neg (NEG) Urine Amphetamine/Methamphetamine Neg (NEG) Urine Benzodiazepines Screen Neg (NEG) Urine Cocaine Screen Neg (NEG) Urine Cannabinoids Screen Neg (NEG) Urine Ethyl Alcohol Neg (NEG) ECHOCARDIOGRAM ECHOCARDIOGRAM <Conclusion> The left ventricular systolic function is normal. The Ejection Fraction is 55-60%. There is normal LV segmental wall motion. The left atrium is moderately dilated. Mild to moderate mitral regurgitation. Moderate tricuspid regurgitation. The pulmonary artery systolic pressure is estimated at 39 mmHg. There is mild pulmonary hypertension. There is no evidence of significant pericardial effusion. DATE: 10/05/16 1558 ASSESSMENT/PLAN ASSESSMENT/PLAN 1. Dizziness possible related to hypotension secondary to dehydration Now resolved. IV fluid replacement ongoing. Rent 2D echo with preserved LV function with an EF of 55-60% with mild to moderate MR and TR check orthos. Will have PPM interrogated to r/o contributing arrhythmia place on telemetry 2. AFIB On Amiodarone for rhythm maintenance presently maintaining SR with controlled rate on Coumadin for stroke prophylaxis. INR 1.8- pharmacy managing 3. Leukocytosis with hypotension 4. Hyperlipidemia check lipids statin if indicated 5. perforated DU s/p repair 6. Abdominal wall abscess with drain intact per surgical team 7. Dysphagia PEG with TPN Problems: GISELLE HUNG APRN Nov 03, 2016 14:31
[2016-11-03] MEDS ORDERED: IOHEXOL 300 MG/ML 75 ML VIAL IV ONE (14:45)
[2016-11-03] MEDS ORDERED: IOHEXOL 240 MG/ML 50ML VIAL. PO ONE (14:45)
--- NOTE | 2016-11-03 14:45 | PDOC2 ---
BRITTANEY SANCHEZ SODA DISPENSER 11/03/16 1445: CONSULT Date of Consult Date of Consult DATE: 11/03/16 TIME: 14:13 Reason for Consult Reason for Consult: drain Referring Physician Referring Physician: PAL Identification/Chief Complaint Chief Complaint dehydration Source Source: Chart review, Patient History of Present Illness Reason for Visit: Admitted for dehydration, hypotension Surgery consulted for emt intermediate HUMBERTO drain--From discuss with patient, he was at [facility] in July for a repair of perforated doudenal ulcer, had abdominal abscesses, and two drains placed(one LUQ, one RUQ)--the left was removed, however right has remained in place, is recovered at a facility. He is unsure when last followed up with his surgeon there. 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 peg tube) Psych: Anxiety, Bipolar, Depression Past Surgical History Past Surgical History: Other (spleenectomy, DU repair, peg tube, pacemaker) Family History Family History: Other (noncontributory to current illness ) Social History No ALCOHOL: none Drugs: None Lives: Residential Current Problem List Problem List Problems Medical Problems: (1) Dehydration Status: Acute (2) Fall Status: Acute Current Medications Current Medications Current Medications Sodium Chloride (Iv Sodium Chloride 0.9% 1000ml Bag) 1,000 ml @ 1,000 mls/hr 1X ONCE IV Last administered on 11/02/16 20:00; Start 11/02/16 at 20:00; Stop 11/02/16 at 20:59; Status DC Ondansetron HCl 4 mg 4 mg PRN Q8HRS PRN IV NAUSEA/VOMITING; Start 11/02/16 at 21:30; Stop 11/03/16 at 12:26; Status DC Sodium Chloride 1,000 ml @ 150 mls/hr Q6H40M IV Last administered on 05:38; Start 11/02/16 at 21:17; Stop 11/03/16 at 12:26; Status DC Sodium Chloride 1,000 ml @ 1,000 mls/hr 1X ONCE IV Last administered on 21:30; Start 11/02/16 at 21:30; Stop 11/02/16 at 22:29; Status DC Ceftriaxone Sodium 1 gm/ Sodium Chloride 50 ml @ 100 mls/hr Q24H IV Last administered on 11/03/16 02:02; Start 11/02/16 at 23:30 Sodium Chloride (Iv Sodium Chloride 0.9% 1000ml Bag) 1,000 ml @ 75 mls/hr [id number] IV Last administered on 11/03/16 12:30; Start 11/03/16 at 12:30 Amiodarone HCl (Cordarone) 200 mg BID PEG ; Start 11/03/16 at 21:00 Cholestyramine Resin (Questran Light) 4 gm TID PEG ; Start 11/03/16 at 14:00 Ferrous Sulfate 300 mg BIDWMEALS PEG ; Start 11/03/16 at 17:00 Albuterol Sulfate (Ventolin Neb Soln) 2.5 mg PRN Q4HRS PRN NEB SHORTNESS OF BREATH; Start 11/03/16 at 12:45 Pantoprazole Sodium (Protonix) 40 mg BIDAC PO ; Start 11/03/16 at 16:30 Sertraline HCl (Zoloft) 25 mg DAILY PEG ; Start 11/04/16 at 09:00 Warfarin Sodium (Coumadin) 2 mg DAILY16 PEG ; Start 11/03/16 at 16:00 Acetaminophen (Tylenol) 325 mg PRN Q4HRS PRN PO MILD PAIN / TEMP; Start at 12:45 Ascorbic Acid (Vitamin C) 1,000 mg BID PEG ; Start 11/03/16 at 21:00 Al Hydroxide/Mg Hydroxide (Mylanta Plus Xs) 30 ml PRN Q2HR PRN PEG NAUSEA; Start 11/03/16 at 12:45 Warfarin Sodium (Coumadin Per Pharmacy) 1 each PRN DAILY PRN MC SEE COMMENTS; Start 11/03/16 at 12:30 Active Scripts Active Reported Triple Antibiotic Ointment (Neomy Sulf/Bacitra/Polymyxin B) 1 Each Packet 1 Each TP DAILY Duoneb 0.5-3(2.5) Mg/3 Ml (Albuterol/Ipratropium) 3 Ml Ampul.neb 3 Ml NEB PRN Q4HRS PRN Ferrous Sulfate 325 Mg Tablet 1 Tab PEG BID Cholestyramine Light Packet (Cholestyramine/Aspartame) 4 Gm Powd.pack 4 Gm PEG TID Coumadin (Warfarin Sodium) 2 Mg Tablet 1 Tab PEG DAILY Acetaminophen 325 Mg/10.15 Ml Solution 325 Mg PEG PRN Q4HRS PRN Alum-Mag Hydroxide-Simeth Liq (Mag Hydrox/Al Hydrox/Simeth) 360 Ml Oral.susp 30 Ml PEG PRN Q2HRS PRN Vitamin C (Ascorbic Acid) 500 Mg Capsule.er 1,000 Mg PEG BID Sertraline Hcl 25 Mg Tablet 25 Mg PEG DAILY Protonix (Pantoprazole Sodium) 40 Mg Tablet.dr 1 Tab PEG BID Amiodarone Hcl 200 Mg Tablet 1 Tab PEG BID Allergies Allergies: Coded Allergies: Sulfa (Sulfonamide Antibiotics) (Verified Allergy, Intermediate, 09/22/16) ROS General: No: Chills, Other (fevers) PSYCHOLOGICAL ROS: YES: Anxiety, Depression Eyes: No Blurry vision, No Double vision HEENT: No: Heacaches, Sore Throat Hematological and Lymphatic: YES: Bleeding Problems, Brusing Respiratory: No: Cough, Shortness of breath Cardiovascular: No Chest Pain, No Palpitations Gastrointestinal: No Nausea, No Vomiting Genitourinary: No Dysuria, No Hematuria Musculoskeletal: Yes Joint Pain, Yes Muscle Pain, Yes Muscular Weakness Neurological: No Impaired Coord/balance, No Numbness/Tingling Skin: No Pruritus, No Rash Physical Exam General: Alert, Oriented X3, Cooperative, No acute distress HEENT: PERRLA, Mucous membr. moist/pink Lungs: Clear to auscultation, Normal air movement Heart: Regular rate, Normal S1, Normal S2, No murmurs Abdomen: Soft, Other (ND, NTTP, Humberto drain to RUQ) Extremities: No clubbing, No cyanosis Skin: No rashes, No breakdown Neuro: Normal speech, Sensation intact Psych/Mental Status: Mental status NL, Mood NL MUSCULOSKELETAL: No deformity, No swelling Vitals VITALS Vital Signs Date Time Temp Pulse Resp B/P Pulse Ox O2 Delivery O2 Flow Rate FiO2 11/03/16 11:00 98.8 81 16 96/52 97 Room Air 98.8 Labs Labs Laboratory Tests Test 11/02/16 20:35 11/02/16 21:40 11/03/16 02:00 11/03/16 03:40 White Blood Count 14.2x10^3/uL (4.0-11.0) 11.5x10^3/uL (4.0-11.0) Red Blood Count 3.05x10^6/uL (4.30-5.70) 2.60x10^6/uL (4.30-5.70) Hemoglobin 8.6g/dL (13.0-17.5) 7.3g/dL (13.0-17.5) Hematocrit 27.0% (39.0-53.0) 23.1% (39.0-53.0) Mean Corpuscular Volume 88fL (79-100) 89fL (79-100) Mean Corpuscular Hemoglobin 28pg (25-35) 28pg (25-35) Mean Corpuscular Hemoglobin Concent 32g/dL (31-37) 32g/dL (31-37) Red Cell Distribution Width 18.0% (11.5-14.5) 18.4% (11.5-14.5) Platelet Count 292x10^3/uL (140-400) 287x10^3/uL (140-400) Neutrophils (%) (Auto) 57% (31-73) 50% (31-73) Lymphocytes (%) (Auto) 32% (24-48) 37% (24-48) Monocytes (%) (Auto) 10% (0-9) 13% (0-9) Eosinophils (%) (Auto) 0% (0-3) 0% (0-3) Basophils (%) (Auto) 0% (0-3) 1% (0-3) Neutrophils # (Auto) 8.1x10^3uL (1.8-7.7) 5.8x10^3uL (1.8-7.7) Lymphocytes # (Auto) 4.6x10^3/uL (1.0-4.8) 4.2x10^3/uL (1.0-4.8) Monocytes # (Auto) 1.4x10^3/uL (0.0-1.1) 1.5x10^3/uL (0.0-1.1) Eosinophils # (Auto) 0.0x10^3/uL (0.0-0.7) 0.0x10^3/uL (0.0-0.7) Basophils # (Auto) 0.1x10^3/uL (0.0-0.2) 0.1x10^3/uL (0.0-0.2) Prothrombin Time 19.9SEC (11.7-14.0) Prothromb Time International Ratio 1.8 (0.8-1.1) Sodium Level 135mmol/L (136-145) 136mmol/L (136-145) Potassium Level 4.0mmol/L (3.5-5.1) 3.5mmol/L (3.5-5.1) Chloride Level 101mmol/L (98-107) 104mmol/L (98-107) Carbon Dioxide Level 27mmol/L (21-32) 25mmol/L (21-32) Anion Gap 7 (6-14) 7 (6-14) Blood Urea Nitrogen 18mg/dL (8-26) 17mg/dL (8-26) Creatinine 0.9mg/dL (0.7-1.3) 0.8mg/dL (0.7-1.3) Estimated GFR (Cockcroft-Gault) 82.3 94.2 Glucose Level 69mg/dL (70-99) 68mg/dL (70-99) Calcium Level 7.6mg/dL (8.5-10.1) 7.4mg/dL (8.5-10.1) Troponin I Quantitative < 0.017ng/mL (0.000-0.055) Lactic Acid Level 1.2mmol/L (0.4-2.0) Urine Collection Type Unknown Urine Color Yellow Urine Clarity Clear Urine pH 7.0 Urine Specific [place] 1.015 Urine Protein 30mg/dL (NEG-TRACE) Urine Glucose (UA) Negativemg/dL (NEG) Urine Ketones (Stick) Negativemg/dL (NEG) Urine Blood Negative (NEG) Urine Nitrite Negative (NEG) Urine Bilirubin Negative (NEG) Urine Urobilinogen Dipstick 0.2mg/dL (0.2 mg/dL) Urine Leukocyte Esterase Small (NEG) Urine RBC 6-10/HPF (0-2) Urine WBC 11-20/HPF (0-4) Urine Squamous Epithelial Cells Few/LPF Urine Bacteria Many/HPF (0-FEW) Urine Hyaline Casts Moderate/HPF Urine Mucus Mod/LPF Urine Opiates Screen Neg (NEG) Urine Methadone Screen Neg (NEG) Urine Barbiturates Neg (NEG) Urine Phencyclidine Screen Neg (NEG) Urine Amphetamine/Methamphetamine Neg (NEG) Urine Benzodiazepines Screen Neg (NEG) Urine Cocaine Screen Neg (NEG) Urine Cannabinoids Screen Neg (NEG) Urine Ethyl Alcohol Neg (NEG) Laboratory Tests Test 11/02/16 20:35 11/02/16 21:40 11/03/16 02:00 11/03/16 03:40 White Blood Count 14.2x10^3/uL (4.0-11.0) 11.5x10^3/uL (4.0-11.0) Red Blood Count 3.05x10^6/uL (4.30-5.70) 2.60x10^6/uL (4.30-5.70) Hemoglobin 8.6g/dL (13.0-17.5) 7.3g/dL (13.0-17.5) Hematocrit 27.0% (39.0-53.0) 23.1% (39.0-53.0) Mean Corpuscular Volume 88fL (79-100) 89fL (79-100) Mean Corpuscular Hemoglobin 28pg (25-35) 28pg (25-35) Mean Corpuscular Hemoglobin Concent 32g/dL (31-37) 32g/dL (31-37) Red Cell Distribution Width 18.0% (11.5-14.5) 18.4% (11.5-14.5) Platelet Count 292x10^3/uL (140-400) 287x10^3/uL (140-400) Neutrophils (%) (Auto) 57% (31-73) 50% (31-73) Lymphocytes (%) (Auto) 32% (24-48) 37% (24-48) Monocytes (%) (Auto) 10% (0-9) 13% (0-9) Eosinophils (%) (Auto) 0% (0-3) 0% (0-3) Basophils (%) (Auto) 0% (0-3) 1% (0-3) Neutrophils # (Auto) 8.1x10^3uL (1.8-7.7) 5.8x10^3uL (1.8-7.7) Lymphocytes # (Auto) 4.6x10^3/uL (1.0-4.8) 4.2x10^3/uL (1.0-4.8) Monocytes # (Auto) 1.4x10^3/uL (0.0-1.1) 1.5x10^3/uL (0.0-1.1) Eosinophils # (Auto) 0.0x10^3/uL (0.0-0.7) 0.0x10^3/uL (0.0-0.7) Basophils # (Auto) 0.1x10^3/uL (0.0-0.2) 0.1x10^3/uL (0.0-0.2) Prothrombin Time 19.9SEC (11.7-14.0) Prothromb Time International Ratio 1.8 (0.8-1.1) Sodium Level 135mmol/L (136-145) 136mmol/L (136-145) Potassium Level 4.0mmol/L (3.5-5.1) 3.5mmol/L (3.5-5.1) Chloride Level 101mmol/L (98-107) 104mmol/L (98-107) Carbon Dioxide Level 27mmol/L (21-32) 25mmol/L (21-32) Anion Gap 7 (6-14) 7 (6-14) Blood Urea Nitrogen 18mg/dL (8-26) 17mg/dL (8-26) Creatinine 0.9mg/dL (0.7-1.3) 0.8mg/dL (0.7-1.3) Estimated GFR (Cockcroft-Gault) 82.3 94.2 Glucose Level 69mg/dL (70-99) 68mg/dL (70-99) Calcium Level 7.6mg/dL (8.5-10.1) 7.4mg/dL (8.5-10.1) Troponin I Quantitative < 0.017ng/mL (0.000-0.055) Lactic Acid Level 1.2mmol/L (0.4-2.0) Urine Collection Type Unknown Urine Color Yellow Urine Clarity Clear Urine pH 7.0 Urine Specific [place] 1.015 Urine Protein 30mg/dL (NEG-TRACE) Urine Glucose (UA) Negativemg/dL (NEG) Urine Ketones (Stick) Negativemg/dL (NEG) Urine Blood Negative (NEG) Urine Nitrite Negative (NEG) Urine Bilirubin Negative (NEG) Urine Urobilinogen Dipstick 0.2mg/dL (0.2 mg/dL) Urine Leukocyte Esterase Small (NEG) Urine RBC 6-10/HPF (0-2) Urine WBC 11-20/HPF (0-4) Urine Squamous Epithelial Cells Few/LPF Urine Bacteria Many/HPF (0-FEW) Urine Hyaline Casts Moderate/HPF Urine Mucus Mod/LPF Urine Opiates Screen Neg (NEG) Urine Methadone Screen Neg (NEG) Urine Barbiturates Neg (NEG) Urine Phencyclidine Screen Neg (NEG) Urine Amphetamine/Methamphetamine Neg (NEG) Urine Benzodiazepines Screen Neg (NEG) Urine Cocaine Screen Neg (NEG) Urine Cannabinoids Screen Neg (NEG) Urine Ethyl Alcohol Neg (NEG) Assessment/Plan Assessment/Plan perihepatic abscess--last evaluated in IR 1 month ago hx of DU repair at [facility] in July, when the abscesses occurred afib, anticoagulation(warfarin) CT to assess will also need to FU with surgeon at [facility] that did his surgery PATY CHU MD 11/03/16 1508: CONSULT Allergies Allergies: Coded Allergies: Sulfa (Sulfonamide Antibiotics) (Verified Allergy, Intermediate, 09/22/16) Assessment/Plan Assessment/Plan (Carl Chiu) came by to see patient he is sleeping soundly I did not wake him await CT results before any recommendations will follow Thanks for consult BRITTANEY SANCHEZ APRN Nov 03, 2016 14:45 PATY CHU MD Nov 03, 2016 15:08
[2016-11-03] MEDS ORDERED: CONTRAST GIVEN MC PRN (15:00)
[2016-11-03] MEDS ORDERED: WARFARIN 2 MG TABLET. PEG SCH (16:00)
--- NOTE | 2016-11-03 16:41 | RAD ---
CT abdomen and pelvis with IV contrast History: Hepatic abscess. Comparison: Outside CT abdomen pelvis without intravenous contrast 09/28/2016 Technique: After administration of oral and intravenous contrast, 75 mL Omnipaque 300, helical CT of the abdomen and pelvis was performed from the lung bases through the ischial tuberosities. Axial, sagittal, and coronal reconstructions were obtained. One or more of the following individualized dose reduction techniques were utilized for the study: Automated exposure control Adjustment of mA and/or kV according to patient's size Use of iterative reconstruction technique. Findings: Visualized lower chest demonstrate patchy nodular consolidation involving the medial left upper lobe adjacent to the heart. Small bilateral pleural effusions, right larger than left, are seen. Bilateral dependent atelectasis is present. Pacemaker leads are present. Arterial calcifications are seen. There is a perihepatic pigtail catheter adjacent to the lateral aspect of the right hepatic lobe. There is a thin sliver of fluid surrounding the pigtail catheter. Fluid measures roughly 1 x 4 cm in maximum axial dimension x 4 cm in craniocaudal dimension. Spleen is absent. There is a peripherally enhancing fluid collection in the left upper quadrant inferior to the diaphragm measuring roughly 5 x 4.5 cm in axial dimension x 4 cm in craniocaudal dimension; fluid collection is smaller. Spleen is absent. Several small soft tissue appearing nodules in left upper quadrant probably splenules. Gallbladder is absent. Bilateral kidneys enhance symmetrically. Gastrostomy tube is present. Infrarenal abdominal aortic aneurysm is present measuring 4.1 cm in AP dimension x 5.6 cm in transverse dimension. Urinary bladder is unremarkable. There is no evidence of bowel obstruction. There is wall thickening involving the distal descending colon as well as the sigmoid colon, compatible with nonspecific colitis. Inflammatory change of the distal colon appears improved from previous study. No free air is identified. There is grade 1 spondylolisthesis at L5-S1 from bilateral L5 pars defects. Advanced right and mild left hip degeneration is seen. Impression: 1. Small bilateral pleural effusions, right larger than left. 2. Small focus of nonspecific irregular consolidation involving the left upper lobe. This could represent small focus of infection or inflammation. 3. Interval reduction in right perihepatic abscess with only a small sliver of fluid remaining. 4. Interval reduction of a peripherally enhancing fluid collection in the subdiaphragmatic left upper quadrant. This presumably represents interval improvement in abscess versus postsurgical seroma or hematoma. 5. Infrarenal abdominal aortic aneurysm measuring 4.1 x 5.6 cm in axial dimension. 6. Interval improvement in nonspecific distal colitis.
[2016-11-03] MEDS: PANTOPRAZOLE 40 MG TABLET.DR. PO SCH (17:48)
[2016-11-03] MEDS: FERROUS SULFATE ORAL 300 MG/5 ML SOLUTION. PEG SCH (17:48)
[2016-11-03 19:00] VITALS: BP 95/48
[2016-11-03] MEDS: AMIODARONE HCL 200 MG TABLET. PEG SCH (21:30)
[2016-11-03] MEDS: ASCORBIC ACID 500 MG TABLET PEG SCH (21:30)
[2016-11-03 23:00] VITALS: BP 108/52
[2016-11-04] MEDS: IV NORMAL SALINE 1000ML BAG 1,000 ML IV SCH ×2 (00:57→15:46)
[2016-11-04 04:54] LABS: INR 1.6 (0.8-1.1); PROTHROMBIN TIME PATIENT 17.8 SEC (11.7-14.0)
[2016-11-04 05:35] LABS: CHOLESTEROL/HDL RATIO 3.6
[2016-11-04 07:00] VITALS: BP 114/59
--- NOTE | 2016-11-04 09:05 | PDOC ---
SURGICAL PROGRESS NOTE Subjective Pt feels much better today, denies abd pain, wishes to return to facility Vital Signs Vital Signs Date Time Temp Pulse Resp B/P Pulse Ox O2 Delivery O2 Flow Rate FiO2 11/03/16 23:00 99.4 84 20 108/52 94 Room Air 99.4 I&O Intake and Output 11/04/16 07:00 Intake Total 1060 ml Output Total 400 ml Balance 660 ml Tube Feeding 60 ml Other 1000 ml Output Urine Total 400 ml # Voids 5 # Bowel Movements 3 General: Alert, Oriented X3, Cooperative, No acute distress Abdomen: Soft, No tenderness, Other (drain in place with seropurulent drainage , G-tube in place) Labs Laboratory Tests Test 11/02/16 20:35 11/02/16 21:40 11/03/16 02:00 11/03/16 03:40 White Blood Count 14.2x10^3/uL (4.0-11.0) 11.5x10^3/uL (4.0-11.0) Red Blood Count 3.05x10^6/uL (4.30-5.70) 2.60x10^6/uL (4.30-5.70) Hemoglobin 8.6g/dL (13.0-17.5) 7.3g/dL (13.0-17.5) Hematocrit 27.0% (39.0-53.0) 23.1% (39.0-53.0) Mean Corpuscular Volume 88fL (79-100) 89fL (79-100) Mean Corpuscular Hemoglobin 28pg (25-35) 28pg (25-35) Mean Corpuscular Hemoglobin Concent 32g/dL (31-37) 32g/dL (31-37) Red Cell Distribution Width 18.0% (11.5-14.5) 18.4% (11.5-14.5) Platelet Count 292x10^3/uL (140-400) 287x10^3/uL (140-400) Neutrophils (%) (Auto) 57% (31-73) 50% (31-73) Lymphocytes (%) (Auto) 32% (24-48) 37% (24-48) Monocytes (%) (Auto) 10% (0-9) 13% (0-9) Eosinophils (%) (Auto) 0% (0-3) 0% (0-3) Basophils (%) (Auto) 0% (0-3) 1% (0-3) Neutrophils # (Auto) 8.1x10^3uL (1.8-7.7) 5.8x10^3uL (1.8-7.7) Lymphocytes # (Auto) 4.6x10^3/uL (1.0-4.8) 4.2x10^3/uL (1.0-4.8) Monocytes # (Auto) 1.4x10^3/uL (0.0-1.1) 1.5x10^3/uL (0.0-1.1) Eosinophils # (Auto) 0.0x10^3/uL (0.0-0.7) 0.0x10^3/uL (0.0-0.7) Basophils # (Auto) 0.1x10^3/uL (0.0-0.2) 0.1x10^3/uL (0.0-0.2) Prothrombin Time 19.9SEC (11.7-14.0) Prothromb Time International Ratio 1.8 (0.8-1.1) Sodium Level 135mmol/L (136-145) 136mmol/L (136-145) Potassium Level 4.0mmol/L (3.5-5.1) 3.5mmol/L (3.5-5.1) Chloride Level 101mmol/L (98-107) 104mmol/L (98-107) Carbon Dioxide Level 27mmol/L (21-32) 25mmol/L (21-32) Anion Gap 7 (6-14) 7 (6-14) Blood Urea Nitrogen 18mg/dL (8-26) 17mg/dL (8-26) Creatinine 0.9mg/dL (0.7-1.3) 0.8mg/dL (0.7-1.3) Estimated GFR (Cockcroft-Gault) 82.3 94.2 Glucose Level 69mg/dL (70-99) 68mg/dL (70-99) Calcium Level 7.6mg/dL (8.5-10.1) 7.4mg/dL (8.5-10.1) Troponin I Quantitative < 0.017ng/mL (0.000-0.055) Lactic Acid Level 1.2mmol/L (0.4-2.0) Urine Collection Type Unknown Urine Color Yellow Urine Clarity Clear Urine pH 7.0 Urine Specific [place] 1.015 Urine Protein 30mg/dL (NEG-TRACE) Urine Glucose (UA) Negativemg/dL (NEG) Urine Ketones (Stick) Negativemg/dL (NEG) Urine Blood Negative (NEG) Urine Nitrite Negative (NEG) Urine Bilirubin Negative (NEG) Urine Urobilinogen Dipstick 0.2mg/dL (0.2 mg/dL) Urine Leukocyte Esterase Small (NEG) Urine RBC 6-10/HPF (0-2) Urine WBC 11-20/HPF (0-4) Urine Squamous Epithelial Cells Few/LPF Urine Bacteria Many/HPF (0-FEW) Urine Hyaline Casts Moderate/HPF Urine Mucus Mod/LPF Urine Opiates Screen Neg (NEG) Urine Methadone Screen Neg (NEG) Urine Barbiturates Neg (NEG) Urine Phencyclidine Screen Neg (NEG) Urine Amphetamine/Methamphetamine Neg (NEG) Urine Benzodiazepines Screen Neg (NEG) Urine Cocaine Screen Neg (NEG) Urine Cannabinoids Screen Neg (NEG) Urine Ethyl Alcohol Neg (NEG) Test 11/03/16 10:49 11/04/16 03:15 Nasal Screen MRSA (PCR) Positive (Negative) Prothrombin Time 17.8SEC (11.7-14.0) Prothromb Time International Ratio 1.6 (0.8-1.1) Triglycerides Level 57mg/dL (0-150) Cholesterol Level 100mg/dL (0-200) LDL Cholesterol, Calculated 61mg/dL (0-100) VLDL Cholesterol, Calculated 11mg/dL (0-40) Non-HDL Cholesterol Calculated 72mg/dL (0-129) HDL Cholesterol 28mg/dL (40-60) Cholesterol/HDL Ratio 3.6 Laboratory Tests Test 11/03/16 10:49 11/04/16 03:15 Nasal Screen MRSA (PCR) Positive (Negative) Prothrombin Time 17.8SEC (11.7-14.0) Prothromb Time International Ratio 1.6 (0.8-1.1) Triglycerides Level 57mg/dL (0-150) Cholesterol Level 100mg/dL (0-200) LDL Cholesterol, Calculated 61mg/dL (0-100) VLDL Cholesterol, Calculated 11mg/dL (0-40) Non-HDL Cholesterol Calculated 72mg/dL (0-129) HDL Cholesterol 28mg/dL (40-60) Cholesterol/HDL Ratio 3.6 Problem List Problems Medical Problems: (1) Dehydration Status: Acute (2) Fall Status: Acute Assessment/Plan abd abscess appears to be doing well with rehydration cont drain no surgical plans currently Problems: JAYLEN BRADLEY MD Nov 04, 2016 09:05
[2016-11-04] MEDS: SERTRALINE 25 MG TABLET. PEG SCH (09:20)
[2016-11-04] MEDS: PANTOPRAZOLE 40 MG TABLET.DR. PO SCH ×2 (09:20→15:44)
[2016-11-04] MEDS: CHOLESTYRAMINE/ASPARTAME 4 GM PACKET PEG SCH ×3 (09:21→21:09)
[2016-11-04] MEDS: FERROUS SULFATE ORAL 300 MG/5 ML SOLUTION. PEG SCH ×2 (09:21→15:44)
[2016-11-04] MEDS: ASCORBIC ACID 500 MG TABLET PEG SCH ×2 (09:21→21:08)
[2016-11-04] MEDS: AMIODARONE HCL 200 MG TABLET. PEG SCH ×2 (09:23→21:08)
[2016-11-04 11:00] VITALS: BP 121/61
--- NOTE | 2016-11-04 11:56 | PDOC ---
PROGRESS NOTES Chief Complaint Chief Complaint cc: dizziness A/P Dizziness: suspected due to hypotension,: on iv hydration with normal saline, Improved, . hx of Afib, rate controlled, on warfarin, INR goal 2-3, pharmacy to dose Coumadin. Dysphagia with due to esophageal issues, unclear : on PEG, initiate tube feeding Recent HX of abdominal abscess: on ASAD drain,CT abdomen results noted, GS recommendations noted. Bipolar Leucocytosis likely due to dehydration, Infrarenal abdominal aortic aneurysm measuring 4.1 x 5.6 cm: need out pt follow up in 6-12 months. History of Present Illness History of Present Illness dizziness no fever no chills Vitals Vitals Vital Signs Date Time Temp Pulse Resp B/P Pulse Ox O2 Delivery O2 Flow Rate FiO2 11/04/16 09:23 82 114/59 11/04/16 08:00 Room Air 11/04/16 07:00 97.9 20 94 97.9 Physical Exam General: Alert, Oriented X3, Cooperative, No acute distress Heart: Regular rate, Normal S1, Normal S2, Other (not on telemetry, 2/6 systolic murmur ) Lungs: Clear, Wheezing Abdomen: Soft, No tenderness, Other (drain in place with seropurulent drainage , G-tube in place) Extremities: Normal pulses, Other (1+ bilateral LE edema ) Skin: No rashes, No breakdown Labs LABS Laboratory Tests Test 11/04/16 03:15 Prothrombin Time 17.8SEC (11.7-14.0) Prothromb Time International Ratio 1.6 (0.8-1.1) Triglycerides Level 57mg/dL (0-150) Cholesterol Level 100mg/dL (0-200) LDL Cholesterol, Calculated 61mg/dL (0-100) VLDL Cholesterol, Calculated 11mg/dL (0-40) Non-HDL Cholesterol Calculated 72mg/dL (0-129) HDL Cholesterol 28mg/dL (40-60) Cholesterol/HDL Ratio 3.6 Assessment and Plan Assessmemt and Plan Problems Medical Problems: (1) Dehydration Status: Acute (2) Fall Status: Acute Problems: Comment Review of Relevant I have reviewed the following items bigg (where applicable) has been applied. Labs Laboratory Tests Test 11/02/16 20:35 11/02/16 21:40 11/03/16 02:00 11/03/16 03:40 White Blood Count 14.2x10^3/uL (4.0-11.0) 11.5x10^3/uL (4.0-11.0) Red Blood Count 3.05x10^6/uL (4.30-5.70) 2.60x10^6/uL (4.30-5.70) Hemoglobin 8.6g/dL (13.0-17.5) 7.3g/dL (13.0-17.5) Hematocrit 27.0% (39.0-53.0) 23.1% (39.0-53.0) Mean Corpuscular Volume 88fL (79-100) 89fL (79-100) Mean Corpuscular Hemoglobin 28pg (25-35) 28pg (25-35) Mean Corpuscular Hemoglobin Concent 32g/dL (31-37) 32g/dL (31-37) Red Cell Distribution Width 18.0% (11.5-14.5) 18.4% (11.5-14.5) Platelet Count 292x10^3/uL (140-400) 287x10^3/uL (140-400) Neutrophils (%) (Auto) 57% (31-73) 50% (31-73) Lymphocytes (%) (Auto) 32% (24-48) 37% (24-48) Monocytes (%) (Auto) 10% (0-9) 13% (0-9) Eosinophils (%) (Auto) 0% (0-3) 0% (0-3) Basophils (%) (Auto) 0% (0-3) 1% (0-3) Neutrophils # (Auto) 8.1x10^3uL (1.8-7.7) 5.8x10^3uL (1.8-7.7) Lymphocytes # (Auto) 4.6x10^3/uL (1.0-4.8) 4.2x10^3/uL (1.0-4.8) Monocytes # (Auto) 1.4x10^3/uL (0.0-1.1) 1.5x10^3/uL (0.0-1.1) Eosinophils # (Auto) 0.0x10^3/uL (0.0-0.7) 0.0x10^3/uL (0.0-0.7) Basophils # (Auto) 0.1x10^3/uL (0.0-0.2) 0.1x10^3/uL (0.0-0.2) Prothrombin Time 19.9SEC (11.7-14.0) Prothromb Time International Ratio 1.8 (0.8-1.1) Sodium Level 135mmol/L (136-145) 136mmol/L (136-145) Potassium Level 4.0mmol/L (3.5-5.1) 3.5mmol/L (3.5-5.1) Chloride Level 101mmol/L (98-107) 104mmol/L (98-107) Carbon Dioxide Level 27mmol/L (21-32) 25mmol/L (21-32) Anion Gap 7 (6-14) 7 (6-14) Blood Urea Nitrogen 18mg/dL (8-26) 17mg/dL (8-26) Creatinine 0.9mg/dL (0.7-1.3) 0.8mg/dL (0.7-1.3) Estimated GFR (Cockcroft-Gault) 82.3 94.2 Glucose Level 69mg/dL (70-99) 68mg/dL (70-99) Calcium Level 7.6mg/dL (8.5-10.1) 7.4mg/dL (8.5-10.1) Troponin I Quantitative < 0.017ng/mL (0.000-0.055) Lactic Acid Level 1.2mmol/L (0.4-2.0) Urine Collection Type Unknown Urine Color Yellow Urine Clarity Clear Urine pH 7.0 Urine Specific [place] 1.015 Urine Protein 30mg/dL (NEG-TRACE) Urine Glucose (UA) Negativemg/dL (NEG) Urine Ketones (Stick) Negativemg/dL (NEG) Urine Blood Negative (NEG) Urine Nitrite Negative (NEG) Urine Bilirubin Negative (NEG) Urine Urobilinogen Dipstick 0.2mg/dL (0.2 mg/dL) Urine Leukocyte Esterase Small (NEG) Urine RBC 6-10/HPF (0-2) Urine WBC 11-20/HPF (0-4) Urine Squamous Epithelial Cells Few/LPF Urine Bacteria Many/HPF (0-FEW) Urine Hyaline Casts Moderate/HPF Urine Mucus Mod/LPF Urine Opiates Screen Neg (NEG) Urine Methadone Screen Neg (NEG) Urine Barbiturates Neg (NEG) Urine Phencyclidine Screen Neg (NEG) Urine Amphetamine/Methamphetamine Neg (NEG) Urine Benzodiazepines Screen Neg (NEG) Urine Cocaine Screen Neg (NEG) Urine Cannabinoids Screen Neg (NEG) Urine Ethyl Alcohol Neg (NEG) Test 11/03/16 10:49 11/04/16 03:15 Nasal Screen MRSA (PCR) Positive (Negative) Prothrombin Time 17.8SEC (11.7-14.0) Prothromb Time International Ratio 1.6 (0.8-1.1) Triglycerides Level 57mg/dL (0-150) Cholesterol Level 100mg/dL (0-200) LDL Cholesterol, Calculated 61mg/dL (0-100) VLDL Cholesterol, Calculated 11mg/dL (0-40) Non-HDL Cholesterol Calculated 72mg/dL (0-129) HDL Cholesterol 28mg/dL (40-60) Cholesterol/HDL Ratio 3.6 Laboratory Tests Test 11/04/16 03:15 Prothrombin Time 17.8SEC (11.7-14.0) Prothromb Time International Ratio 1.6 (0.8-1.1) Triglycerides Level 57mg/dL (0-150) Cholesterol Level 100mg/dL (0-200) LDL Cholesterol, Calculated 61mg/dL (0-100) VLDL Cholesterol, Calculated 11mg/dL (0-40) Non-HDL Cholesterol Calculated 72mg/dL (0-129) HDL Cholesterol 28mg/dL (40-60) Cholesterol/HDL Ratio 3.6 Microbiology 11/02/16 Blood Culture - Preliminary, Resulted NO GROWTH AFTER 1 DAY Medications Current Medications Sodium Chloride (Iv Sodium Chloride 0.9% 1000ml Bag) 1,000 ml @ 1,000 mls/hr 1X ONCE IV Last administered on 11/02/16t 20:00; Start 11/02/16 at 20:00; Stop 11/02/16 at 20:59; Status DC Ondansetron HCl 4 mg 4 mg PRN Q8HRS PRN IV NAUSEA/VOMITING; Start 11/02/16 at 21:30; Stop 11/03/16 at 12:26; Status DC Sodium Chloride 1,000 ml @ 150 mls/hr Q6H40M IV Last administered on 05:38; Start 11/02/16 at 21:17; Stop 11/03/16 at 12:26; Status DC Sodium Chloride 1,000 ml @ 1,000 mls/hr 1X ONCE IV Last administered on 21:30; Start 11/02/16 at 21:30; Stop 11/02/16 at 22:29; Status DC Ceftriaxone Sodium 1 gm/ Sodium Chloride 50 ml @ 100 mls/hr Q24H IV Last administered on 11/03/16 21:31; Start 11/02/16 at 23:30 Sodium Chloride (Iv Sodium Chloride 0.9% 1000ml Bag) 1,000 ml @ 75 mls/hr [id number] IV Last administered on 11/04/16 00:57; Start 11/03/16 at 12:30 Amiodarone HCl (Cordarone) 200 mg BID PEG Last administered on 11/04/16 09:23 ; Start 11/03/16 at 21:00 Cholestyramine Resin (Questran Light) 4 gm TID PEG Last administered on 09:21; Start 11/03/16 at 14:00 Ferrous Sulfate 300 mg BIDWMEALS PEG Last administered on 11/04/16 09:21; Start 11/03/16 at 17:00 Albuterol Sulfate (Ventolin Neb Soln) 2.5 mg PRN Q4HRS PRN NEB SHORTNESS OF BREATH Last administered on 11/03/16 16:15; Start 11/03/16 at 12:45 Pantoprazole Sodium (Protonix) 40 mg BIDAC PO Last administered on 11/04/16 09 :20; Start 11/03/16 at 16:30 Sertraline HCl (Zoloft) 25 mg DAILY PEG Last administered on 11/04/16 09:20; Start 11/04/16 at 09:00 Warfarin Sodium (Coumadin) 2 mg DAILY16 PEG Last administered on 11/03/16 17: 48; Start 11/03/16 at 16:00 Acetaminophen (Tylenol) 325 mg PRN Q4HRS PRN PO MILD PAIN / TEMP; Start at 12:45 Ascorbic Acid (Vitamin C) 1,000 mg BID PEG Last administered on 11/04/16 09:21 ; Start 11/03/16 at 21:00 Al Hydroxide/Mg Hydroxide (Mylanta Plus Xs) 30 ml PRN Q2HR PRN PEG NAUSEA; Start 11/03/16 at 12:45 Warfarin Sodium (Coumadin Per Pharmacy) 1 each PRN DAILY PRN MC SEE COMMENTS Last administered on 11/03/16 17:40; Start 11/03/16 at 12:30 Iohexol (Omnipaque 300 Mg/ml) 75 ml 1X ONCE IV Last administered on 11/03/16 14:45; Start 11/03/16 at 14:45; Stop 11/03/16 at 14:46; Status DC Iohexol (Omnipaque 240 Mg/ml) 30 ml 1X ONCE PO Last administered on 11/03/16 15:58; Start 11/03/16 at 14:45; Stop 11/03/16 at 14:46; Status DC Info (Do NOT chart on this entry -- for MONITORING) 1 each PRN DAILY PRN MC SEE COMMENTS; Start 11/03/16 at 15:00; Stop 11/05/16 at 14:59 Active Scripts Active Reported Triple Antibiotic Ointment (Neomy Sulf/Bacitra/Polymyxin B) 1 Each Packet 1 Each TP DAILY Duoneb 0.5-3(2.5) Mg/3 Ml (Albuterol/Ipratropium) 3 Ml Ampul.neb 3 Ml NEB PRN Q4HRS PRN Ferrous Sulfate 325 Mg Tablet 1 Tab PEG BID Cholestyramine Light Packet (Cholestyramine/Aspartame) 4 Gm Powd.pack 4 Gm PEG TID Coumadin (Warfarin Sodium) 2 Mg Tablet 1 Tab PEG DAILY Acetaminophen 325 Mg/10.15 Ml Solution 325 Mg PEG PRN Q4HRS PRN Alum-Mag Hydroxide-Simeth Liq (Mag Hydrox/Al Hydrox/Simeth) 360 Ml Oral.susp 30 Ml PEG PRN Q2HRS PRN Vitamin C (Ascorbic Acid) 500 Mg Capsule.er 1,000 Mg PEG BID Sertraline Hcl 25 Mg Tablet 25 Mg PEG DAILY Protonix (Pantoprazole Sodium) 40 Mg Tablet.dr 1 Tab PEG BID Amiodarone Hcl 200 Mg Tablet 1 Tab PEG BID Vitals/I & O Vital Sign - Last 24 Hours 11/03/16 11/03/16 11/03/1625/17 15:00 16:15 19:00 20:00 Temp 98.8 98.8 Pulse 83 Resp 20 B/P 95/48 Pulse Ox 95 95 O2 Delivery off unit Room Air Room Air Room Air 11/03/16 11/03/16 11/04/16 11/04/16 21:30 23:00 07:00 08:00 Temp 99.4 97.9 99.4 97.9 Pulse 81 84 82 Resp 20 20 B/P 96/52 108/52 114/59 Pulse Ox 94 94 O2 Delivery Room Air Room Air Room Air 11/04/16 09:23 Pulse 82 B/P 114/59 Intake and Output 11/03/16 11/03/16 11/04/16 15:00 23:00 07:00 Intake Total 100 ml 960 ml Output Total 200 ml 200 ml Balance -100 ml 760 ml Nutrition Consultation Dietary Evaluation: Recommendations by RD: PPN/TPN Comments: TF recs: Fibersource HN 6 cartons/day with flushes 115ml after each carton Expected Outcomes/Goals: to meet >75% est nutr needs Interpretation of weight loss: >7.5% in 3 months Malnutrition Findings: Body Fat Depletion (Non Severe: Mild Depletion Weight Status: Appropriate ZION LAKE MD Nov 04, 2016 11:56
--- NOTE | 2016-11-04 14:02 | PDOC ---
CARDIO Progress Notes Date and Time Date of Service 11/04/16 Time of Evaluation 1045 Subjective Subjective: No Chest Pain, No shortness of breath, No Dizziness, Other ( wanting to go back to rehab facility ) Vitals Vitals Vital Signs Date Time Temp Pulse Resp B/P Pulse Ox O2 Delivery O2 Flow Rate FiO2 11/04/16 11:00 98.2 77 20 121/61 97 Room Air 98.2 Weight Weight [ ] Input and Output Intake and Output Intake and Output 11/04/16 07:00 Intake Total 1060 ml Output Total 400 ml Balance 660 ml Tube Feeding 60 ml Other 1000 ml Output Urine Total 400 ml # Voids 5 # Bowel Movements 3 Laboratory Labs Laboratory Tests Test 11/04/16 03:15 Prothrombin Time 17.8SEC (11.7-14.0) Prothromb Time International Ratio 1.6 (0.8-1.1) Triglycerides Level 57mg/dL (0-150) Cholesterol Level 100mg/dL (0-200) LDL Cholesterol, Calculated 61mg/dL (0-100) VLDL Cholesterol, Calculated 11mg/dL (0-40) Non-HDL Cholesterol Calculated 72mg/dL (0-129) HDL Cholesterol 28mg/dL (40-60) Cholesterol/HDL Ratio 3.6 Microbiology Micro Microbiology 11/02/16 Blood Culture - Preliminary, Resulted NO GROWTH AFTER 1 DAY Physical Exam HEENT: Neck Supple W Full Motion Chest: Symmetric LUNGS: Clear to Auscultation Heart: S1S2, RRR, murmurs (2/6 systolic murmur ) Abdomen: Soft N/T, Other (RUQ drain, PEG intact ) Extremities: Negative Jes's Sign, Other (trace LE edema ) Neurology: alert, oriented, follow commands Assessment Assessment 1. Dizziness likely due to hypotension secondary to dehydration Resolved. IV fluid replacement ongoing. Recent 2D echo with preserved LV function with an EF of 55-60% with mild to moderate MR and TR telemetry with no acute events or arrhythmias no further cardiac workup warranted. Please call with questions. 2. AFIB On Amiodarone for rhythm maintenance presently maintaining SR with controlled rate on Coumadin for stroke prophylaxis. INR 1.6- pharmacy managing 3. Leukocytosis with hypotension 4. Hyperlipidemia on goal 5. perforated DU s/p repair 6. Abdominal wall abscess with drain intact per surgical team 7. Dysphagia PEG with TPN GISELLE HUNG APRN Nov 04, 2016 14:02
[2016-11-04 15:33] VITALS: BP 98/52
[2016-11-04 15:34] VITALS: BP_SYST 85; BP_SYST 97; BP_DIAS 54; BP_DIAS 55
[2016-11-04] MEDS ORDERED: WARFARIN 3 MG TABLET. PO ONE (16:00)
[2016-11-04] MEDS ORDERED: WARFARIN 2 MG TABLET. PO ONE ×2 (16:30→16:45)
[2016-11-04 19:00] VITALS: BP 115/57
[2016-11-04 23:00] VITALS: BP 106/53
--- NOTE | 2016-11-05 00:01 | DS ---
DATE OF DISCHARGE: 11/04/2016 DISCHARGE DIAGNOSES: 1. Dizziness due to dehydration, improved with intravenous hydration. 2. History of atrial fibrillation, rate controlled, currently on warfarin. 3. Dysphagia due to esophageal issues, unclear, currently on tube feeds. 4. History of recent abdominal abscess, currently on ASAD drain. CT of abdomen results noted, no acute process seen and continue current care. 5. Bipolar disorder. 6. Leukocytosis due to dehydration. 7. Infrarenal abdominal aortic aneurysm, size 4.1 x 5.6 cm, asymptomatic, needs outpatient followup in 6-12 months. BRIEF HOSPITAL COURSE: A 75-year-old male patient who was admitted to the hospital on 11/02/2016 for dehydration. He felt dizzy and he was placed on IV hydration, symptoms improved with IV hydration. Also, his Coumadin has been managed by pharmacy. During hospitalization, the patient's hemoglobin has been stable. No obvious bleeding seen. His lipid panel appears to be normal. Also, tox screen appears to be normal. He had mild leukocytosis, which has been resolved with IV hydration. During hospitalization, he was evaluated by Cardiology, agreed with the current management. No arrhythmia was noted. Today, he deemed clinically stable enough to go home and follow up with the primary care doctor. DISCHARGE PHYSICAL EXAMINATION: GENERAL: Alert and oriented x 3. HEART: S1 and S2 present. CHEST: Anterior chest clear. ABDOMEN: Soft and nontender. No organomegaly. EXTREMITIES: No edema. DISCHARGE DISPOSITION: shelter. DISCHARGE CONDITION: Stable. PROGNOSIS: Guarded. DISCHARGE FOLLOWUP: Follow up with primary care doctor and needs repeat ultrasound of the abdomen to monitor abdominal aortic aneurysm in 6-12 months. DISCHARGE MEDICATIONS: Reviewed and reconciled. Total time spent for discharge is 32 minutes for patient education, counseling, and coordination of care. ZION LAKE MD DR: MELIA/afia JOB#: [id number] / [id number]
[2016-11-05 04:09] LABS: INR 1.7 (0.8-1.1); PROTHROMBIN TIME PATIENT 18.9 SEC (11.7-14.0)
[2016-11-05] MEDS: IV NORMAL SALINE 1000ML BAG 1,000 ML IV SCH ×2 (05:32→09:02)
[2016-11-05 07:00] VITALS: BP 106/59
[2016-11-05] MEDS: FERROUS SULFATE ORAL 300 MG/5 ML SOLUTION. PEG SCH (09:00)
[2016-11-05] MEDS: PANTOPRAZOLE 40 MG TABLET.DR. PO SCH (09:00)
[2016-11-05] MEDS: CHOLESTYRAMINE/ASPARTAME 4 GM PACKET PEG SCH ×2 (09:01→14:00)
[2016-11-05] MEDS: AMIODARONE HCL 200 MG TABLET. PEG SCH (09:01)
[2016-11-05] MEDS: SERTRALINE 25 MG TABLET. PEG SCH (09:01)
[2016-11-05] MEDS: ASCORBIC ACID 500 MG TABLET PEG SCH (09:01)
--- NOTE | 2016-11-05 09:21 | PDOC ---
BRITTANEY SANCEHZ OFFICE COORDINATOR RECEPTIONIST 11/05/1621: SURGICAL PROGRESS NOTE Subjective no abdominal pain drain got caught on something and pulled out Vital Signs Vital Signs Date Time Temp Pulse Resp B/P Pulse Ox O2 Delivery O2 Flow Rate FiO2 11/05/16 09:01 81 106/59 11/05/16 07:00 98.5 18 94 Room Air 98.5 I&O Intake and Output 11/05/16 06:59 Intake Total 425 ml Output Total 1 ml Balance 424 ml Intake Oral 0 ml Tube Feeding 425 ml Output Urine Total 1 ml Gastric Drainage Total 0 ml # Bowel Movements 1 General: Alert, Oriented X3, Cooperative, No acute distress Abdomen: Soft, Other (ND, NTTP) Labs Laboratory Tests Test 11/03/16 10:49 11/04/16 03:15 11/05/16 03:30 Nasal Screen MRSA (PCR) Positive (Negative) Prothrombin Time 17.8SEC (11.7-14.0) 18.9SEC (11.7-14.0) Prothromb Time International Ratio 1.6 (0.8-1.1) 1.7 (0.8-1.1) Triglycerides Level 57mg/dL (0-150) Cholesterol Level 100mg/dL (0-200) LDL Cholesterol, Calculated 61mg/dL (0-100) VLDL Cholesterol, Calculated 11mg/dL (0-40) Non-HDL Cholesterol Calculated 72mg/dL (0-129) HDL Cholesterol 28mg/dL (40-60) Cholesterol/HDL Ratio 3.6 Laboratory Tests Test 11/05/16 03:30 Prothrombin Time 18.9SEC (11.7-14.0) Prothromb Time International Ratio 1.7 (0.8-1.1) Problem List Problems Medical Problems: (1) Dehydration Status: Acute (2) Fall Status: Acute Assessment/Plan perihepatic abscess--small on ct, drain now out,would rec no replacement, FU with surgeon that did his surgery as an outpt, ok to dc from surgical pov Problems: JAYLEN BRADLEY MD 11/05/1630: SURGICAL PROGRESS NOTE Assessment/Plan Pt seen and examined. Agree with Ms. Sanchez's note Pt reports feeling well, drain out inadvertently abd soft, G-tube in place, about to be fed OK to d/c, f/u with primary surgeon Problems: BRITTANEY SANCHEZ OFFICE COORDINATOR RECEPTIONIST Nov 05, 2016 09:21 JAYLEN BRADLEY MD Nov 05, 2016 09:30
[2016-11-05 10:48] VITALS: BP 104/58
--- NOTE | 2016-11-05 12:44 | PDOC ---
PROGRESS NOTES Chief Complaint Chief Complaint cc: dizziness A/P Dizziness: suspected due to hypotension,: on iv hydration with normal saline, Improved, . hx of Afib, rate controlled, on warfarin, INR goal 2-3, pharmacy to dose Coumadin. Dysphagia with due to esophageal issues, unclear : on PEG, initiate tube feeding Recent HX of abdominal abscess: on ASAD drain,CT abdomen results noted, GS recommendations noted. Bipolar Leucocytosis likely due to dehydration, Infrarenal abdominal aortic aneurysm measuring 4.1 x 5.6 cm: need out pt follow up in 6-12 months. History of Present Illness History of Present Illness no fever no chills Vitals Vitals Vital Signs Date Time Temp Pulse Resp B/P Pulse Ox O2 Delivery O2 Flow Rate FiO2 11/05/16 10:48 98.0 78 18 104/58 95 Room Air 98.0 Physical Exam General: Alert, Oriented X3, Cooperative, No acute distress Heart: Regular rate, Normal S1, Normal S2, Other Lungs: Clear, Wheezing Abdomen: Soft, Other (ND, NTTP) Extremities: Normal pulses, Other (1+ bilateral LE edema ) Skin: No rashes, No breakdown Labs LABS Laboratory Tests Test 11/05/16 03:30 Prothrombin Time 18.9SEC (11.7-14.0) Prothromb Time International Ratio 1.7 (0.8-1.1) Assessment and Plan Assessmemt and Plan Problems Medical Problems: (1) Dehydration Status: Acute (2) Fall Status: Acute Problems: Comment Review of Relevant I have reviewed the following items bigg (where applicable) has been applied. Labs Laboratory Tests Test 11/04/16 03:15 11/05/16 03:30 Prothrombin Time 17.8SEC (11.7-14.0) 18.9SEC (11.7-14.0) Prothromb Time International Ratio 1.6 (0.8-1.1) 1.7 (0.8-1.1) Triglycerides Level 57mg/dL (0-150) Cholesterol Level 100mg/dL (0-200) LDL Cholesterol, Calculated 61mg/dL (0-100) VLDL Cholesterol, Calculated 11mg/dL (0-40) Non-HDL Cholesterol Calculated 72mg/dL (0-129) HDL Cholesterol 28mg/dL (40-60) Cholesterol/HDL Ratio 3.6 Laboratory Tests Test 11/05/16 03:30 Prothrombin Time 18.9SEC (11.7-14.0) Prothromb Time International Ratio 1.7 (0.8-1.1) Microbiology 11/02/16 Blood Culture - Preliminary, Resulted NO GROWTH AFTER 2 DAYS 11/03/16 Urine Culture - Preliminary, Resulted 11/03/16 Urine Culture Result 1 (SARAH) - Preliminary, Resulted Medications Current Medications Sodium Chloride (Iv Sodium Chloride 0.9% 1000ml Bag) 1,000 ml @ 1,000 mls/hr 1X ONCE IV Last administered on 11/02/16 20:00; Start 11/02/16 at 20:00; Stop 11/02/16 at 20:59; Status DC Ondansetron HCl 4 mg 4 mg PRN Q8HRS PRN IV NAUSEA/VOMITING; Start 11/02/16 at 21:30; Stop 11/03/16 at 12:26; Status DC Sodium Chloride 1,000 ml @ 150 mls/hr Q6H40M IV Last administered on 05:38; Start 11/02/16 at 21:17; Stop 11/03/16 at 12:26; Status DC Sodium Chloride 1,000 ml @ 1,000 mls/hr 1X ONCE IV Last administered on 21:30; Start 11/02/16 at 21:30; Stop 11/02/16 at 22:29; Status DC Ceftriaxone Sodium 1 gm/ Sodium Chloride 50 ml @ 100 mls/hr Q24H IV Last administered on 11/04/16 21:11; Start 11/02/16 at 23:30 Sodium Chloride (Iv Sodium Chloride 0.9% 1000ml Bag) 1,000 ml @ 75 mls/hr [id number] IV Last administered on 11/05/16 09:02; Start 11/03/16 at 12:30 Amiodarone HCl (Cordarone) 200 mg BID PEG Last administered on 11/05/16 09:01 ; Start 11/03/16 at 21:00 Cholestyramine Resin (Questran Light) 4 gm TID PEG Last administered on 09:01; Start 11/03/16 at 14:00 Ferrous Sulfate 300 mg BIDWMEALS PEG Last administered on 11/05/16 09:00; Start 11/03/16 at 17:00 Albuterol Sulfate (Ventolin Neb Soln) 2.5 mg PRN Q4HRS PRN NEB SHORTNESS OF BREATH Last administered on 11/03/16 16:15; Start 11/03/16 at 12:45 Pantoprazole Sodium (Protonix) 40 mg BIDAC PO Last administered on 11/05/16 09 :00; Start 11/03/16 at 16:30 Sertraline HCl (Zoloft) 25 mg DAILY PEG Last administered on 11/05/16 09:01; Start 11/04/16 at 09:00 Warfarin Sodium (Coumadin) 2 mg DAILY16 PEG Last administered on 11/03/16 17: 48; Start 11/03/16 at 16:00; Stop 11/04/16 at 13:53; Status DC Acetaminophen (Tylenol) 325 mg PRN Q4HRS PRN PO MILD PAIN / TEMP; Start at 12:45 Ascorbic Acid (Vitamin C) 1,000 mg BID PEG Last administered on 11/05/16 09:01 ; Start 11/03/16 at 21:00 Al Hydroxide/Mg Hydroxide (Mylanta Plus Xs) 30 ml PRN Q2HR PRN PEG NAUSEA; Start 11/03/16 at 12:45 Warfarin Sodium (Coumadin Per Pharmacy) 1 each PRN DAILY PRN MC SEE COMMENTS Last administered on 11/04/16 13:55; Start 11/03/16 at 12:30 Iohexol (Omnipaque 300 Mg/ml) 75 ml 1X ONCE IV Last administered on 11/03/16 14:45; Start 11/03/16 at 14:45; Stop 11/03/16 at 14:46; Status DC Iohexol (Omnipaque 240 Mg/ml) 30 ml 1X ONCE PO Last administered on 11/03/16 15:58; Start 11/03/16 at 14:45; Stop 11/03/16 at 14:46; Status DC Info (Do NOT chart on this entry -- for MONITORING) 1 each PRN DAILY PRN MC SEE COMMENTS; Start 11/03/16 at 15:00; Stop 11/05/16 at 14:59 Warfarin Sodium (Coumadin) 3 mg 1X WARF ONCE PO Last administered on 15:46; Start 11/04/16 at 16:00; Stop 11/04/16 at 16:01; Status DC Warfarin Sodium (Coumadin) 2 mg 1X ONCE PO ; Start 11/04/16 at 16:30; Stop at 16:31; Status UNV Warfarin Sodium (Coumadin) 2 mg 1X ONCE PO Last administered on 11/04/16t 17: 35; Start 11/04/16 at 16:45; Stop 11/04/16 at 16:46; Status DC Active Scripts Active Reported Triple Antibiotic Ointment (Neomy Sulf/Bacitra/Polymyxin B) 1 Each Packet 1 Each TP DAILY Duoneb 0.5-3(2.5) Mg/3 Ml (Albuterol/Ipratropium) 3 Ml Ampul.neb 3 Ml NEB PRN Q4HRS PRN Ferrous Sulfate 325 Mg Tablet 1 Tab PEG BID Cholestyramine Light Packet (Cholestyramine/Aspartame) 4 Gm Powd.pack 4 Gm PEG TID Coumadin (Warfarin Sodium) 2 Mg Tablet 1 Tab PEG DAILY Acetaminophen 325 Mg/10.15 Ml Solution 325 Mg PEG PRN Q4HRS PRN Alum-Mag Hydroxide-Simeth Liq (Mag Hydrox/Al Hydrox/Simeth) 360 Ml Oral.susp 30 Ml PEG PRN Q2HRS PRN Vitamin C (Ascorbic Acid) 500 Mg Capsule.er 1,000 Mg PEG BID Sertraline Hcl 25 Mg Tablet 25 Mg PEG DAILY Protonix (Pantoprazole Sodium) 40 Mg Tablet. 1 Tab PEG BID Amiodarone Hcl 200 Mg Tablet 1 Tab PEG BID Vitals/I & O Vital Sign - Last 24 Hours 11/04/16 11/04/16 11/04/16 11/04/16 15:33 15:34 15:34 19:00 Temp 99.8 99.8 Pulse 80 75 88 81 Resp 20 B/P 98/52 97/54 85/55 115/57 Pulse Ox 94 O2 Delivery Room Air 11/04/16 11/04/16 11/04/16 11/05/16 19:47 21:08 23:00 07:00 Temp 99.2 98.5 99.2 98.5 Pulse 81 84 81 Resp 20 18 B/P 115/57 106/53 106/59 Pulse Ox 92 94 O2 Delivery Room Air Room Air Room Air 11/05/16 11/05/16 09:01 10:48 Temp 98.0 98.0 Pulse 81 78 Resp 18 B/P 106/59 104/58 Pulse Ox 95 O2 Delivery Room Air Intake and Output 11/04/16 11/04/16 11/05/16 15:00 23:00 07:00 Intake Total 365 ml 60 ml 0 ml Output Total 0 ml 1 ml Balance 365 ml 60 ml -1 ml Nutrition Consultation Dietary Evaluation: Recommendations by RD: PPN/TPN Comments: Continue current TF recs: Fibersource HN 6 cartons/day with flushes 115ml after each carton Expected Outcomes/Goals: to meet >75% est nutr needs: not fully met; goal ongoing Interpretation of weight loss: >7.5% in 3 months Malnutrition Findings: Body Fat Depletion (Non Severe: Mild Depletion Weight Status: Appropriate ZION LAKE MD Nov 05, 2016 12:44
[2016-11-05 14:37] VITALS: BP 130/71
[2016-11-05] MEDS ORDERED: WARFARIN 3 MG TABLET. PO ONE (16:00)
== END 2016-11-05 17:10 | DRG 640 ==
LOC: ER 19:45 → 5 SOUTH 21:09
PROVIDERS: ADMIT Internal Medicine; ATTEND Internal Medicine
DX: E86.0 Dehydration (principal); K75.0 Abscess of liver; L02.211 Cutaneous abscess of abdominal wall; I48.91 Unspecified atrial fibrillation; I95.9 Hypotension, unspecified; D64.9 Anemia, unspecified; D72.829 Elevated white blood cell count, unspecified; E78.5 Hyperlipidemia, unspecified; F20.9 Schizophrenia, unspecified; I10 Essential (primary) hypertension; I71.4 Abdominal aortic aneurysm, without rupture; K21.9 Gastro-esophageal reflux disease without esophagitis; K22.0 Achalasia of cardia; R13.19 Other dysphagia; W01.0XXA Fall on same level from slipping, tripping and stumbling without subsequent striking against object, initial encounter; M19.90 Unspecified osteoarthritis, unspecified site; F41.9 Anxiety disorder, unspecified; F32.9 Major depressive disorder, single episode, unspecified; W07.XXXA Fall from chair, initial encounter; Z79.01 Long term (current) use of anticoagulants; Z83.3 Family history of diabetes mellitus; Z87.11 Personal history of peptic ulcer disease; Z93.1 Gastrostomy status; Z99.3 Dependence on wheelchair; Z88.2 Allergy status to sulfonamides
CPT/HCPCS: 36415; 70450; 71010; 72125; 73502; 74177; 80048; 80061; 81001; 83605; 84484; 85027; 85610; 87040; 87086; 87186; 87641; 93005; 94250; 94640; 94760; 96360; 96361; G0481; J0696; J7030; Q9966; Q9967; 97110; 99285-25